=== PATIENT | male | born 1985 | race Hispanic/Latino ===

== ENCOUNTER 2016-11-12 21:39 | Inpatient (IN) | payer MEDICAID ==
[2016-11-12 22:07] VITALS: BMI 33.7
[2016-11-12] MEDS ORDERED: DiphenhydrAMINE 50 mg/ml Inj IM PRN (23:36)
[2016-11-12] MEDS ORDERED: Magnesium Hydroxide Susp 30 ml UD PO PRN (23:36)
[2016-11-12] MEDS ORDERED: Alum-Mag Hydrox-Simethicone Susp (30 mL) PO PRN (23:36)
[2016-11-13 08:01] LABS: T4 4.97 ug/dl (5.5-11.0)
[2016-11-13 08:15] LABS: THYROID STIMULATING HORMONE 2.16 mIU/ML (0.46-4.68)
[2016-11-13] MEDS: Divalproex 250 mg DR(BID formulation) PO SCH ×4 (09:03→21:51)
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
[2016-11-14] MEDS: Divalproex 250 mg DR(BID formulation) PO SCH ×4 (09:19→21:18)
--- NOTE | 2016-11-14 14:10 | PCM.PYCHPN ---
Psychiatric Progress Note - Psychiatric Progress Note Patient seen today, length of contact: in treatment team Patient Chief Complaint: i am feeling a little better Problems Identified/Issues Discussed: pt seen in team. he is reporting his paranoid thoughts are improving. he still feels anxious. he is asking for increase in his seroquel. he reports he uses minipress at night for nightmares . he is attempting to participate in groups. Medication Change: Yes (add minipress, increase seroquel) Medical Record Reviewed: Yes Mental Status Examination - Cognitive Function Orientation: Person, Place, Situation, Time Memory: Intact Attention: WNL Concentration: WNL Association: [facility] Fund of Knowledge: [facility] Decription of patient's judgement and insights: fair - Mood Mood: Depressed, Anxious - Affect Affect: Blunted - Speech Speech: Appropriate - Formal Thought Process Formal Thought Process: Paranoia (states thoughts are decreasing in intensity) - Suicidal Ideation Suicidal Ideation: No Plan: denies suicidal or homicidal thoughts - Homicidal Ideation Homicidal Ideation: No Goal/Treatment Plan - Goal/Treatment Plan Need for Continued Stay: Remain at risks for inpatient hospitalization, Discharge may exacerbated symptoms Progress Toward Problem(s) and Goals/Treatment Plan: schizoaffective diorder alcohol dependence ptsd by history will continue current treatment increase seroquel to restart minipress increase remeron to usual dose encourage participation in groups Estimated Date of D/C: 12/17/16
[2016-11-15] MEDS: Divalproex 250 mg DR(BID formulation) PO SCH ×4 (09:04→21:37)
--- NOTE | 2016-11-15 12:10 | PCM.PYCHPN ---
Psychiatric Progress Note - Psychiatric Progress Note Patient seen today, length of contact: pt seen and evaluated Patient Chief Complaint: pt still feels paranoid and irritible and still has racing thoughts.pt denies hallucinations Problems Identified/Issues Discussed: pt was admitted for psychotic agitation following alcohol abuse and noncompliance with meds. DSM 5 Symptoms Update: schizoaffective disorder ,bipolar type Medication Change: (will increase seroquel to 75 mg hs to stabilize) Medical Record Reviewed: Yes Mental Status Examination - Cognitive Function Orientation: Person, Place, Situation, Time Memory: Intact Attention: Poor Concentration: Poor Association: WNL Fund of Knowledge: WNL - Mood Mood: Depressed, Anxious - Affect Affect: Blunted - Speech Speech: Appropriate - Formal Thought Process Formal Thought Process: Paranoia (states thoughts are decreasing in intensity), Flight of ideas - Suicidal Ideation Suicidal Ideation: No - Homicidal Ideation Homicidal Ideation: No Goal/Treatment Plan - Goal/Treatment Plan Need for Continued Stay: Remain at risks for inpatient hospitalization, Discharge may exacerbated symptoms Progress Toward Problem(s) and Goals/Treatment Plan: will increase seroquel to 75 mg hs to stabilize the psychosis and engage pt in therapy and groups. Estimated Date of D/C: 12/17/16
[2016-11-16] MEDS: Divalproex 250 mg DR(BID formulation) PO SCH ×4 (09:11→21:31)
--- NOTE | 2016-11-16 13:41 | PCM.PYCHPN ---
Psychiatric Progress Note - Psychiatric Progress Note Patient seen today, length of contact: pt seen and evaluated Patient Chief Complaint: pt still feels paranoid and irritible and still has racing thoughts.pt denies hallucinations pt still c/o nightmares Problems Identified/Issues Discussed: pt was admitted for psychotic agitation following alcohol abuse and noncompliance with meds. DSM 5 Symptoms Update: schizoaffective disorder Medication Change: (will increase seroquel to 100 mg hs and increase minipress to 2mg hs) Medical Record Reviewed: Yes Mental Status Examination - Cognitive Function Orientation: Person, Place, Situation, Time Memory: Intact Attention: Poor Concentration: Poor Association: WNL Fund of Knowledge: WNL - Mood Mood: Depressed, Anxious - Affect Affect: Blunted - Speech Speech: Appropriate - Formal Thought Process Formal Thought Process: Paranoia (states thoughts are decreasing in intensity), Flight of ideas - Suicidal Ideation Suicidal Ideation: No - Homicidal Ideation Homicidal Ideation: No Goal/Treatment Plan - Goal/Treatment Plan Need for Continued Stay: Remain at risks for inpatient hospitalization, Discharge may exacerbated symptoms Progress Toward Problem(s) and Goals/Treatment Plan: will increase seroquel to 100 mg hs to stabilize the psychosis and engage pt in therapy and groups. Estimated Date of D/C: 12/17/16
[2016-11-17 08:51] VITALS: O2SAT 99
[2016-11-17] MEDS: Divalproex 250 mg DR(BID formulation) PO SCH ×2 (09:02→18:41)
[2016-11-17] MEDS ORDERED: Divalproex 500 mg DR(BID formulation) PO SCH (13:00)
--- NOTE | 2016-11-17 13:05 | PCM.PYCHPN ---
Psychiatric Progress Note - Psychiatric Progress Note Patient seen today, length of contact: discussed with treatment team Patient Chief Complaint: i am getting anxious Problems Identified/Issues Discussed: pt reports anxiety regarding his need to go to welfare after discharged - states he can't be around so many people. he is asking to have klonopin back up at home dose. he is asking for seroquel to be split to bid instead of 3 times. he is brighter and more visible in the milieu. Medication Change: (will increase seroquel to 100 mg hs and increase minipress to 2mg hs) Medical Record Reviewed: Yes Mental Status Examination - Cognitive Function Orientation: Person, Place, Situation, Time Memory: Intact Attention: WNL Concentration: WNL Association: WN Fund of Knowledge: [facility] Decription of patient's judgement and insights: fair - Mood Mood: Anxious - Affect Affect: Broad - Speech Speech: Appropriate - Formal Thought Process Formal Thought Process: No Impairment Psychotic Thoughts and Behaviors: no moare paranoid thoughts - Suicidal Ideation Suicidal Ideation: No - Homicidal Ideation Homicidal Ideation: No Goal/Treatment Plan - Goal/Treatment Plan Need for Continued Stay: Remain at risks for inpatient hospitalization, Discharge may exacerbated symptoms Progress Toward Problem(s) and Goals/Treatment Plan: schizoaffective diorder alcohol dependence ptsd by history will continue current treatment increase seroquel to 50mg and 150mg continue minipress encourage participation in groups Estimated Date of D/C: 12/17/16
[2016-11-17] MEDS: Divalproex 500 mg DR(BID formulation) PO SCH (18:44)
[2016-11-18] MEDS: Divalproex 250 mg DR(BID formulation) PO SCH ×2 (09:03→16:38)
[2016-11-18] MEDS: Divalproex 500 mg DR(BID formulation) PO SCH ×2 (09:03→16:33)
--- NOTE | 2016-11-18 11:25 | PCM.PYCHPN ---
Psychiatric Progress Note - Psychiatric Progress Note Patient seen today, length of contact: discussed with treatment team Patient Chief Complaint: i feel ok Problems Identified/Issues Discussed: pt reports improvement in anxiety. his thoughts are more clear. he is socializing with peers. no c/o panic. more discharge focused Medication Change: Yes (increase seroquel) Medical Record Reviewed: Yes Mental Status Examination - Cognitive Function Orientation: Person, Place, Situation, Time Memory: Intact Attention: WNL Concentration: WNL Association: WNL Fund of Knowledge: [facility] Decription of patient's judgement and insights: fair - Mood Mood: Anxious - Affect Affect: Broad - Speech Speech: Appropriate - Formal Thought Process Formal Thought Process: No Impairment Psychotic Thoughts and Behaviors: denies a/v hallucations. - Suicidal Ideation Suicidal Ideation: No - Homicidal Ideation Homicidal Ideation: No Goal/Treatment Plan - Goal/Treatment Plan Need for Continued Stay: Remain at risks for inpatient hospitalization, Discharge may exacerbated symptoms Progress Toward Problem(s) and Goals/Treatment Plan: schizoaffective diorder alcohol dependence ptsd by history will continue current treatment increase seroquel to 50mg and 200mg continue minipress encourage participation in groups Estimated Date of D/C: 12/17/16
[2016-11-19] MEDS: Divalproex 500 mg DR(BID formulation) PO SCH ×2 (09:13→17:59)
[2016-11-19] MEDS: Divalproex 250 mg DR(BID formulation) PO SCH ×2 (09:13→18:00)
--- NOTE | 2016-11-19 11:05 | PCM.PYCHPN ---
Psychiatric Progress Note - Psychiatric Progress Note Patient seen today, length of contact: discussed with treatment team Patient Chief Complaint: i feel better each day Problems Identified/Issues Discussed: pt reports continued improvement in anxiety and clarity of thoughts. he is socializing with peers. no c/o panic. remains discharge focused Medication Change: No ( ) Medical Record Reviewed: Yes Mental Status Examination - Cognitive Function Orientation: Person, Place, Situation, Time Memory: Intact Attention: WNL Concentration: WNL Association: WNL Fund of Knowledge: [place] Decription of patient's judgement and insights: fair - Mood Mood: Neutral - Affect Affect: Broad - Speech Speech: Appropriate - Formal Thought Process Formal Thought Process: No Impairment - Suicidal Ideation Suicidal Ideation: No - Homicidal Ideation Homicidal Ideation: No Goal/Treatment Plan - Goal/Treatment Plan Need for Continued Stay: Remain at risks for inpatient hospitalization, Discharge may exacerbated symptoms Progress Toward Problem(s) and Goals/Treatment Plan: schizoaffective diorder alcohol dependence ptsd by history will continue current treatment continue seroquel to 50mg and 200mg continue minipress encourage participation in groups Estimated Date of D/C: 12/17/16
[2016-11-19 17:00] VITALS: RESP 18
[2016-11-19] MEDS ORDERED: POLYETHYLENE GLYCOL 3350 17 GM/Dose PACKET PO PRN (23:58)
[2016-11-20] MEDS: Hydrocortisone 2.5% (Rectal) CREAM PR SCH ×3 (09:00→18:32)
[2016-11-20] MEDS: Divalproex 250 mg DR(BID formulation) PO SCH ×2 (09:06→16:48)
[2016-11-20] MEDS: Divalproex 500 mg DR(BID formulation) PO SCH ×2 (09:07→16:45)
--- NOTE | 2016-11-20 12:18 | PCM.PYCHPN ---
Psychiatric Progress Note - Psychiatric Progress Note Patient seen today, length of contact: discussed with treatment team Patient Chief Complaint: i feel ready to go Problems Identified/Issues Discussed: pt denies medication side effects. pt goal directed. sleep is improved. no longer c/o feeling paranoid. Medication Change: No ( ) Medical Record Reviewed: Yes Mental Status Examination - Cognitive Function Orientation: Person, Place, Situation, Time Memory: Intact Attention: WNL Concentration: WNL Association: WNL Fund of Knowledge: [facility] Decription of patient's judgement and insights: fair - Mood Mood: Neutral - Affect Affect: Broad - Speech Speech: Appropriate - Formal Thought Process Formal Thought Process: No Impairment - Suicidal Ideation Suicidal Ideation: No - Homicidal Ideation Homicidal Ideation: No Goal/Treatment Plan - Goal/Treatment Plan Need for Continued Stay: Remain at risks for inpatient hospitalization, Discharge may exacerbated symptoms Progress Toward Problem(s) and Goals/Treatment Plan: schizoaffective diorder alcohol dependence ptsd by history will continue current treatment encourage participation in groups discharge tomorrow Estimated Date of D/C: 12/17/16
[2016-11-21] MEDS: Hydrocortisone 2.5% (Rectal) CREAM PR SCH (08:36)
[2016-11-21] MEDS: Divalproex 500 mg DR(BID formulation) PO SCH (08:37)
[2016-11-21] MEDS: Divalproex 250 mg DR(BID formulation) PO SCH (08:37)
[2016-11-21 09:21] VITALS: BP 113/75; PULSE 69; TEMP 96.1
--- NOTE | 2016-11-21 13:38 | PCM.PYCHDC ---
Mental Status Examination - Mental Status Examination Orientation: Person, Place, Situation, Time Memory: Intact Mood: Neutral Affect: Constricted Speech: Appropriate Attention: WNL Concentration: WNL Association: WNL Fund of Knowledge: WNL Formal Thought Process: No Impairment Description of patient's judgement and insight: fair Psychotic Thoughts and Behaviors: denies a/v hallucations. Suicidal Ideation: No Current Homicidal Ideation?: No Plan: pt denies any suicidal or homicidal thoughts/plans or intent Discharge Summary - Discharge Note Reason for Hospitalization: transfered from [facility]- admitted for seizures, pt was expressing worsening psychosis Psychiatric History (includes Medical, Family, Personal Hx): history of alcohol dependence, seizures, schizoaffective disorder Laboratory Data: Abnormal Lab Results 11/21/16 07:06 Valproic Acid 41.1 L Consultations:: List each consultation separately and include: 1. Reason for request. 2. Findings. 3. Follow-up Consultations: seen by hospitalist Summary of Hospital Course include:: 1. Description of specific treatment plan utilized for patients during their course of treatmen. 2. Summarize the time- course for resolution of acute symptoms and/or regressed behaviors. 3. Describe issues identified and worked on during hospitalization. 4. Describe medication utilized. 5. Describe medical problems identified and treated. 6. Reassessment of suicide risk Summary of Hospital Course: pt transfered from [facility]. he had presented with seizures. he is an alcoholic and has schizoaffective disorder. pt states in the weeks preceeding his medical admission he was drinking alcohol daily to treat his psychotic symptoms. pt reports he was becoming increasingly paranoid and anxious. he states he was having thoughts to hurt others "before they hurt me." he apparently tried to make an appointment to address these symptoms, but did not have the change to go. he is feeling safe on the unit. he wants to go back on seroquel as he says that invega did not help with his symptoms. he has an unsteady gait and was seen by PT while in the medical hospital. hospital course pt was admitted to [facility] and oriented to the unit. pt seen by the hospitalist. he was seen by the treatment team. he was started on his previously effective medications and the dosages were titrated up to current levels. he was initially isolative and paranoid. his thoughts improved, his mood brightened and he did not have any complications of alcohol withdrawal. there were no acute medical issues. he was treated for constipation and hemorrhoids. the patient was referred to out patient treatment and the team was in touch with his professional supports. at the time of discharge the patient wad denying suicidal or homicidal thoughts, plans or intent. - Final Diagnosis (DSM 5) Condition upon Discharge: GOOD DSM 5: schizoaffective disorder alcohol dependence Disposition: HOME/ ROUTINE Follow-up Treatment Plan: take medications as prescribed do not use alcohol, tobacco or other illicit substances call 911 if any suicidal or homicidal thoughts attend aa meetings daily see your medical specialists as directed for follow up Prescriptions/Medication Reconciliation: Hydrocortisone 2.5% (Rectal) [Anusol-HC] 1 applic SD BID #1 tube Divalproex [Depakote DR (*BID*)] 250 mg PO BID #30 ect Divalproex [Depakote DR(*BID*)] 500 mg PO BID #30 tcp levETIRAcetam [Keppra] 1,500 mg PO BID #90 tab clonazePAM [Klonopin] 1 mg PO BID #30 tab lamoTRIgine [Lamictal] 25 mg PO BID #30 tab Prazosin HCl [Minipress] 2 mg PO HS #30 cap Polyethylene Glycol 3350 [Miralax] 17 gm PO DAILY PRN #15 packet PRN Reason: Constipation Ibuprofen [Motrin Tab] 600 mg PO Q6 PRN #15 tab PRN Reason: pain Mirtazapine [Remeron] 15 mg PO HS #15 tab Mirtazapine [Remeron] 30 mg PO HS #15 tab QUEtiapine [SEROquel] 200 mg PO HS #15 tab QUEtiapine [SEROquel] 50 mg PO DAILY #15 tab - Smoking Cessation Smoking Cessation Medication prescribed: No - Antipsychotic Medications Pt discharged on 2 or more routine antipsychotic medications: No
--- NOTE | 2016-12-09 12:15 | CON ---
DATE: 12/09/2016 CHIEF COMPLAINT: Seizures. HISTORY OF PRESENT ILLNESS: This is a 31-year-old male who experienced a seizure approximately 2 weeks prior to admission at [facility] on [address] in [place]. He was at the clinic for removal of 2 metal osvaldo at the left occipital region, which were placed at [facility] 2 weeks prior secondary to a seizure at home. The patient states that he had been taking Keppra irregularly. He said that the medications were not working, so he gradually stopped them. He states that he felt isolated and then started drinking alcohol with his new roommate. He also stated that he became paranoid and was having auditory hallucinations. He denied any chest pain, shortness of breath or palpitations. PAST MEDICAL HISTORY: The patient was at [facility] from 08/03/2016 through 08/18/2016, schizoaffective disorder, posttraumatic stress disorder, anxiety, seizures, obstructive sleep apnea, hypertension, insomnia, elevated liver function studies, thrombocytopenia, anxiety, depression. ALLERGIES: No known drug allergies. MEDICATIONS: Keppra 1500 mg twice daily, prazosin 2 mg at bedtime, trazodone 50 mg at bedtime, Invega 9 mg daily, gabapentin 400 mg 3 times a day, Lamictal 25 mg twice daily, mirtazapine 45 mg at bedtime. SOCIAL HISTORY: The patient denies smoking cigarettes. History of alcohol abuse. FAMILY HISTORY: Father due to cancer of the prostate in his 60s. He was a smoker. Mother at the age of 54 due to lung cancer with metastasis. She was also a smoker. The patient has 1 brother and 2 sisters who are healthy. REVIEW OF SYSTEMS: Unremarkable except as mentioned above. PHYSICAL EXAMINATION: GENERAL: A 31-year-old cooperative male. VITAL SIGNS: Blood pressure 126/82mmHg, pulse rate 72 beats per minute, afebrile, respiratory rate 16 respirations per minute. SKIN: Warm, dry. HEENT: A 1-1/2 inch scar healing well left occipital region. Normocephalic. Anicteric sclerae. Pupils equal, round, reactive to light and accommodation. NECK: Supple. No jugular venous distention. Full range of motion. HEART: Regular S1, S2, I/ systolic ejection murmur. LUNGS: Clear to auscultation. ABDOMEN: Positive bowel sounds, soft, nontender. EXTREMITIES: No cyanosis, clubbing or edema. ASSESSMENT: 1. Seizure disorder. 2. Alcohol dependence. 3. Schizoaffective disorder. 4. Posttraumatic stress disorder. 5. Laceration left occipital region. 6. Elevated transaminases. PLAN: The patient's laceration at the left occipital region is healing well. CBC, metabolic panel and urinalysis has been ordered for the a.m. The patient will have videotaped sleep study planned at [place] at discharge. He will follow up with Dr. Guillen for further management of seizure disorder. Treatment for alcohol dependence will also be arranged following discharge. Jennifer Acosta MD cc: [id number] TT: 12/09/2016 12:14:09 Confirmation # [id number] Dictation # [id number] isiah AGUILA
== END 2016-11-21 14:32 | disposition home or self-care (01) | DRG 430 ==
LOC: H.ER 21:39 → H.PSYCH 21:55
PROVIDERS: ADMIT Psychiatry & Neurology Psychiatry; ATTEND Psychiatry & Neurology Psychiatry
PROC: GZHZZZZ Group Psychotherapy (ICD-10-PCS; principal; 2016-11-12)
PROC: GZ58ZZZ Individual Psychotherapy, Cognitive-Behavioral (ICD-10-PCS; 2016-11-12)
DX: F25.0 Schizoaffective disorder, bipolar type (principal); R56.9 Unspecified convulsions; F10.20 Alcohol dependence, uncomplicated; F43.10 Post-traumatic stress disorder, unspecified; Z91.14 Patient's other noncompliance with medication regimen; Z91.013 Allergy to seafood

== ENCOUNTER 2017-01-31 22:33 | Inpatient (IN) | payer MEDICAID ==
[2017-01-31 22:33] VITALS: BMI 38.2
[2017-01-31 22:43] VITALS: O2SAT 96
--- NOTE | 2017-01-31 22:48 | ED PDOC ---
Psych Transfer Clearance - Clearance Statement Clearance Statement: Reviewed vital signs, lab results and transfer papers. Patient clinically stable for psychiatric admission.
[2017-02-01] MEDS ORDERED: DiphenhydrAMINE 50 mg/ml Inj IM PRN (00:28)
[2017-02-01] MEDS ORDERED: Magnesium Hydroxide Susp 30 ml UD PO PRN (00:28)
[2017-02-01] MEDS ORDERED: Alum-Mag Hydrox-Simethicone Susp (30 mL) PO PRN (00:28)
[2017-02-01 07:21] LABS: T4 6.94 ug/dl (5.5-11.0)
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
--- NOTE | 2017-02-02 12:13 | PCM.PYCHPN ---
Psychiatric Progress Note - Psychiatric Progress Note Patient seen today, length of contact: discussed with team Patient Chief Complaint: i think i need to go to a care home hospital Problems Identified/Issues Discussed: pt states that nobody has been able to help him. states they told him "stop wasting my time" when he [place] [facility] [place]. admits to drinking. continues to report voices. states he hasn't been "stable since my roomate " (which was some time ago) the patient states that that he is willing try try doxepin for sleep. states that seroquel is helpful. pt c/o left foot pain. pt is c/o feeling sweaty, shaky. Medical Problems: history of seizure disorder Medication Change: Yes Medical Record Reviewed: Yes Mental Status Examination - Cognitive Function Orientation: Person, Place, Situation, Time Memory: Intact Attention: WNL Concentration: WNL Association: [facility] Fund of Knowledge: [facility] Decription of patient's judgement and insights: fair - Mood Mood: Depressed, Anxious - Affect Affect: Constricted - Speech Speech: Appropriate - Formal Thought Process Formal Thought Process: Hallucinations - Suicidal Ideation Suicidal Ideation: Yes Plan: reports he thinks of hitting his head, but feels hopeful now that he is admitted to the hospital. - Homicidal Ideation Homicidal Ideation: No Goal/Treatment Plan - Goal/Treatment Plan Need for Continued Stay: Remain at risks for inpatient hospitalization, Discharge may exacerbated symptoms Progress Toward Problem(s) and Goals/Treatment Plan: alcohol dependence schizoaffective disorder continue current treatment will use ativan tid to start to detox from etoh restart the keppra and consult his pcp podiatry consult for foot pain start doxepin for sleep- discussed r/b/se with pt. have dc'd trazodone and will continue seroquel t/c starting neurontin tomorrow for mood/anxiety/withdrawal refer to [facility] for [facility] inpt Estimated Date of D/C: 02/09/17
[2017-02-02] MEDS: Multivitamin With Minerals Tab PO SCH (13:20)
[2017-02-02] MEDS: Pantoprazole 40 mg EC Tab PO SCH (15:06)
--- NOTE | 2017-02-02 17:08 | CP.PCM.CON ---
History of Present Illness - History of Present Illness History of Present Illness: PODIATRY CONSULT NOTE FOR DR. IBARRA: Mr. Gleason is a 31 yo male patient who was seen in psych unit this afternoon following request for podiatry consult. Pt seen resting in bed at time of visit , AAOx3. Pt says that he has been having left foot pain for the past 4 days. Denies any recent trauma or inciting event that he remembers to trigger the pain. Says that he does have a history of spraining both feet and ankles in the past. Says he feels pain to the outside of the left foot especially when he gets up to walk after long period of resting and says the pain actually feels better after he has walked. Denies any other pedal complaints at this time. PMH: seizures, anxiety, depression ALL: seafood, hyroxyzine Meds: see [facility] Surg. Hx: denies Soc. Hx: lives in [place], admits to binge drinking beers, denies smoking, denies drugs Review of Systems - Review of Systems Review of Systems: all systems reviewed and found to be negative except pertinent HPI findings above Past Patient History - Infectious Disease Hx of Infectious Diseases: None - Tetanus Immunizations Tetanus Immunization: Unknown - Past Medical History & Family History Past Medical History?: Yes - Past Social History Smoking Status: Never Smoked - CARDIAC Hx Hypertension: Yes - PULMONARY Hx Respiratory Disorders: Yes Hx Sleep Apnea: Yes - NEUROLOGICAL Hx Neurological Disorder: Yes Hx Seizures: Yes (Recent siezure a couple od days ago as per patient) - HEENT Hx HEENT Problems: No - RENAL Hx Chronic Kidney Disease: No - ENDOCRINE/METABOLIC Hx Endocrine Disorders: No - HEMATOLOGICAL/ONCOLOGICAL Hx Cancer: No - INTEGUMENTARY Hx Dermatological Problems: No - MUSCULOSKELETAL/RHEUMATOLOGICAL Hx Musculoskeletal Disorders: Yes Hx Back Pain: Yes Hx Falls: Yes (L shoulder pain from fall) Other/Comment: right shoulder eccymosis, unsteady gait - GASTROINTESTINAL Hx Gall Bladder Disease: Yes (thickening of the wall of gb) - GENITOURINARY/GYNECOLOGICAL Hx Sexually Transmitted Disorders: No - PSYCHIATRIC Hx Anxiety: Yes Hx Depression: Yes Hx Substance Use: No - ANESTHESIA Hx Anesthesia: No Hx Anesthesia Reactions: No Hx Malignant Hyperthermia: No Meds Allergies/Adverse Reactions: Allergies Allergy/AdvReac Type Severity Reaction Status Date / Time FISH Allergy RASH Verified 01/31/17 13:02 hydroxyzine [From Vistaril] Allergy RASH Verified 01/31/17 13:02 - Medications Medications: Current Medications Acetaminophen (Tylenol 325mg Tab) 650 mg PO Q4 PRN PRN Reason: Pain, moderate (4-7) Al Hydrox/Mg Hydrox/Simethicone (Maalox Plus 30 Ml) 30 ml PO Q4 PRN PRN Reason: Dyspepsia Last Admin: 02/01/17 08:55 Dose: 30 ml Diphenhydramine HCl (Benadryl) 50 mg IM Q6 PRN PRN Reason: Extrapyramidal S/S Unable PO Diphenhydramine HCl (Benadryl) 50 mg PO HS PRN PRN Reason: Sleep Doxepin HCl (Sinequan) 10 mg PO HS DEACON Folic Acid (Folic Acid) 1 mg PO DAILY [facility] Last Admin: 02/02/17 13:20 Dose: 1 mg Haloperidol (Haldol) 5 mg PO Q4 PRN PRN Reason: Agitation Haloperidol Lactate (Haldol) 5 mg IM Q4 PRN PRN Reason: Agitation, Unable to Take PO Levetiracetam (Keppra) 1,500 mg PO AMHS [facility] Last Admin: 02/02/17 13:20 Dose: 1,500 mg Lorazepam (Ativan) 2 mg IM Q4 PRN PRN Reason: Anxiety/Agitation,Unable PO Lorazepam (Ativan) 2 mg PO Q4 PRN PRN Reason: Anxiety/Agitation Lorazepam (Ativan) 1 mg PO TID [facility] Last Admin: 02/02/17 16:11 Dose: Not Given Magnesium Hydroxide (Milk Of Magnesia) 30 ml PO HS PRN PRN Reason: Constipation Multivitamins/Minerals (Therapeutic-M Tab) 1 tab PO DAILY [facility] Last Admin: 02/02/17 13:20 Dose: 1 tab Pantoprazole Sodium (Protonix Ec Tab) 40 mg PO ACB [facility] Last Admin: 02/02/17 15:06 Dose: 40 mg Prazosin HCl (Minipress) 1 mg PO HS [facility] Quetiapine Fumarate (Seroquel) 200 mg PO HS [facility] Last Admin: 02/01/17 21:23 Dose: 200 mg Thiamine HCl (Vitamin B1 Tab) 100 mg PO DAILY [facility] Last Admin: 02/02/17 13:20 Dose: 100 mg Physical Exam - Constitutional Appears: Non-toxic, No Acute Distress - Extremities Exam Extremities exam: Negative for: calf tenderness Additional comments: Left foot focused exams: VASC- DP/PT pulses 2/4, skin temp runs warm to cool, cap refill < 3 sec to digits x 10, slight non-pitting edema noted to dorsal-lateral aspect of forefoot NEURO- pedal sensation is grossly intact DERM- no IDM, no open lesions, no open wounds, no signs infection ORTHO- tenderness noted to dorsal lateral aspect of forefoot along dorsum of 4th and 5th metatarsal shafts, AJ dorsiflxion is limited (-5 degrees with knee extension and flexion), STJ rom is wnl ,pedal muscle strength is 5/5 in all directions - Neurological Exam Neurological exam: Alert, CN II-XII Intact, Oriented x3 - Psychiatric Exam Psychiatric exam: Normal Affect, Normal Mood Results - Vital Signs Recent Vital Signs: Last Vital Signs Temp 96.8 F L 02/02/17 10:41 Pulse 78 02/02/17 10:41 Resp 18 02/02/17 10:41 BP 167/98 H 02/02/17 10:41 Pulse Ox 96 01/31/17 22:37 - Labs Labs: Laboratory Results - last 24 hr 02/01/17 06:30 RPR Nonreactive Assessment & Plan - Assessment and Plan (Free Text) Assessment: 31 yo male pt with left foot pain likely 2/2 sprain/strain Plan: Pt S&E at bedside in psych Plan discussed with attending Dr. Ibarra in detail Left foot x-ray ordered Ibuprofen 600 mg po q6prn for pain/swelling discussed plan with pt podiatry will follow up x-ray results.
[2017-02-03 07:30] LABS: HEMOGLOBIN 14.8 g/dL (12.0-18.0); MEAN CELL VOLUME 89.9 fl (80.0-94.0); MEAN CORPUSCULAR HEMOGLOBIN 30.6 pg (27.0-31.0); MEAN CORPUSCULAR HGB CONC 34.1 g/dL (33.0-37.0); RBC 4.83 Mil/uL (4.40-5.90); RED CELL DISTRIBUTION WIDTH 12.5 % (11.5-14.5); WHITE BLOOD COUNT 6.6 K/uL (4.8-10.8)
[2017-02-03 07:49] LABS: ALB/GLOB RATIO 1.3 (1.0-2.1); ALT/SGPT 42 U/L (21-72); AST/SGOT 26 U/L (17-59); BLOOD UREA NITROGEN 25 mg/dl (9-20); CALCIUM 9.2 mg/dL (8.4-10.2); GFR AFRICAN-AMERICAN > 60; GFR NON-AFRICAN AMERICAN > 60
[2017-02-03 08:14] LABS: T3 1.11 nmol/L (1.49-2.60)
--- NOTE | 2017-02-03 11:18 | PCM.PYCHPN ---
Psychiatric Progress Note - Psychiatric Progress Note Patient seen today, length of contact: discussed with team Patient Chief Complaint: i feel really tired today Problems Identified/Issues Discussed: pt c/o feeling tired. reports good sleep. no withdrawal symptoms currently denies any hallucinations currently expressing that he doesn't feel he can live outside of a hospital at this time. dr tapia/podiatry following pt Medical Problems: history of seizure disorder Medication Change: Yes Medical Record Reviewed: Yes Mental Status Examination - Cognitive Function Orientation: Person, Place, Situation, Time Memory: Intact Attention: WNL Concentration: WNL Association: WNL Fund of Knowledge: [facility] Decription of patient's judgement and insights: fair - Mood Mood: Depressed, Anxious - Affect Affect: Constricted - Speech Speech: Appropriate - Formal Thought Process Formal Thought Process: Hallucinations - Suicidal Ideation Suicidal Ideation: Yes - Homicidal Ideation Homicidal Ideation: No Goal/Treatment Plan - Goal/Treatment Plan Need for Continued Stay: Remain at risks for inpatient hospitalization, Discharge may exacerbated symptoms Progress Toward Problem(s) and Goals/Treatment Plan: alcohol dependence schizoaffective disorder continue current treatment will use ativan tid to start to detox from etoh restart the keppra and consult his pcp podiatry consult for foot pain start doxepin for sleep- discussed r/b/se with pt. have dc'd trazodone and will continue seroquel t/c starting neurontin tomorrow for mood/anxiety/withdrawal refer to [facility] for [facility] inpt Estimated Date of D/C: 02/09/17
[2017-02-03] MEDS: Multivitamin With Minerals Tab PO SCH (13:02)
[2017-02-03] MEDS: Pantoprazole 40 mg EC Tab PO SCH (13:02)
[2017-02-03 14:00] LABS: URINE BILIRUBIN NEGATIVE (NEGATIVE); URINE BLOOD NEGATIVE (NEGATIVE); URINE CLARITY CLEAR (Clear); URINE COLOR YELLOW (YELLOW); URINE GLUCOSE (UA) NEG (Normal); URINE LEUKOCYTE ESTERASE TRACE Leu/uL (Negative); URINE NITRATE NEGATIVE (NEGATIVE); URINE PROTEIN NEGATIVE (NEGATIVE)
[2017-02-04] MEDS: Multivitamin With Minerals Tab PO SCH (08:45)
[2017-02-04] MEDS: Pantoprazole 40 mg EC Tab PO SCH (08:45)
--- NOTE | 2017-02-04 11:00 | RAD ---
PROCEDURE: Left Foot Radiographs. HISTORY: left foot pain COMPARISON: None available. FINDINGS: BONES: No acute displaced fracture. JOINTS: No dislocation. SOFT TISSUES: Soft tissue swelling. No evidence of radiopaque foreign body. OTHER FINDINGS: None. IMPRESSION: Soft tissue swelling. No acute displaced fracture or dislocation identified.If symptoms persist, or if there is continued clinical concern, x-ray follow-up in 7-10 days should be considered.
--- NOTE | 2017-02-04 13:55 | PCM.PYCHPN ---
Psychiatric Progress Note - Psychiatric Progress Note Patient seen today, length of contact: discussed with team Patient Chief Complaint: i am too tired to talk to you Problems Identified/Issues Discussed: pt c/o feeling tired. refused treatment team foot xray showed soft tissue swelling pt without withdrawal symptoms. pt is help rejecting and c/o every place letting him down. he has burned bridges with providers and resources Medical Problems: history of seizure disorder Medication Change: Yes (lower ativan) Medical Record Reviewed: Yes Mental Status Examination - Cognitive Function Orientation: Person, Place, Situation, Time Memory: Intact Attention: WNL Concentration: WNL Association: WN Fund of Knowledge: [facility] Decription of patient's judgement and insights: fair - Mood Mood: Depressed, Anxious - Affect Affect: Constricted - Speech Speech: Appropriate - Formal Thought Process Formal Thought Process: No Impairment - Suicidal Ideation Suicidal Ideation: No Plan: denies currently - Homicidal Ideation Homicidal Ideation: No Goal/Treatment Plan - Goal/Treatment Plan Need for Continued Stay: Remain at risks for inpatient hospitalization, Discharge may exacerbated symptoms Progress Toward Problem(s) and Goals/Treatment Plan: alcohol dependence schizoaffective disorder continue current treatment lower ativan medical/podiatry following refer [facility] Estimated Date of D/C: 02/09/17
[2017-02-04] MEDS: Bacitracin OINT 15GM TOP SCH (17:44)
--- NOTE | 2017-02-04 22:20 | CP.PCM.PCO ---
Assessment & Plan (1) Foot sprain Assessment and Plan: -Left foot x-ray reviewed: no evidence fracture or dislocation, + for soft tissue swelling. continue with ibuprofen prn and elevation of foot. -Podiatry to sign off, please re-consult as needed -Pt to follow up with Dr. Ibarra as outpatient should symptoms persist. -Thank you for this consult and allowing us to participate in the care of your patient. Status: Acute
[2017-02-05] MEDS: Multivitamin With Minerals Tab PO SCH (09:14)
[2017-02-05] MEDS: Pantoprazole 40 mg EC Tab PO SCH (09:14)
[2017-02-05] MEDS: Bacitracin OINT 15GM TOP SCH (09:14)
--- NOTE | 2017-02-05 11:01 | PCM.PYCHPN ---
Psychiatric Progress Note - Psychiatric Progress Note Patient seen today, length of contact: discussed with team Patient Chief Complaint: i didn't sleep that well Problems Identified/Issues Discussed: pt attending groups today. denies psychotic symptoms. remains focused on needing treatment for his alcohol dependence. he reports poor sleep last night. he has no withdrawal symptoms as ativan standing dose was discontinued. Medical Problems: history of seizure disorder Medication Change: Yes (start neurontin for sleep at ) Medical Record Reviewed: Yes Consults ordered or reviewed: appreciate podiatry assessment, they have signed of Mental Status Examination - Cognitive Function Orientation: Person, Place, Situation, Time Memory: Intact Attention: WNL Concentration: WNL Association: WNL Fund of Knowledge: [facility] Decription of patient's judgement and insights: fair - Mood Mood: Anxious - Affect Affect: Constricted - Speech Speech: Appropriate - Formal Thought Process Formal Thought Process: No Impairment Psychotic Thoughts and Behaviors: denies any a/v hallucinations - Suicidal Ideation Suicidal Ideation: No Plan: pt denies any suicidal or homicidal thoughts/plans or intent - Homicidal Ideation Homicidal Ideation: No Goal/Treatment Plan - Goal/Treatment Plan Need for Continued Stay: Remain at risks for inpatient hospitalization, Discharge may exacerbated symptoms Progress Toward Problem(s) and Goals/Treatment Plan: alcohol dependence schizoaffective disorder pt's psychiatric symptoms are stablizing and he is appropriate for inpt substance abuse treatment at this time.. continue to encourage participation in groups refer to [facility] for [facility] inpt Estimated Date of D/C: 02/09/17
--- NOTE | 2017-02-05 15:52 | CP.PCM.PCO ---
Assessment & Plan (1) Foot sprain Assessment and Plan: -Pt is podiatrically stable for d/c to rehab. weight bearing as tolerated to left foot. X-ray negative for fx or dislocation. Pt is not a fall risk. Follow up with Dr. Ibarra as outpatient as needed. Thank you. Status: Acute
--- NOTE | 2017-02-05 17:55 | CON ---
DATE: 02/05/2017 CHIEF COMPLAINT: Pain, redness and swelling, midline, anterior aspect of the head. HISTORY OF PRESENT ILLNESS: This is a 31-year-old white male who started consuming excessive amounts of alcohol after being offered by his new roommate approximately 2 weeks ago. The patient states th at he stopped his medications and decided to kill himself by banging his head against the wall. He n oted increasing auditory hallucinations for approximately 1 month. He complained of increasing redne ss, swelling and pain at the front of his head, at midline, just above the hairline. He denied any c hest pain, shortness of breath or palpitations. PAST MEDICAL HISTORY: Schizoaffective disorder, posttraumatic stress disorder, anxiety, seizures, ob structive sleep apnea, hypertension, insomnia, elevated liver function studies, thrombocytopenia, anx iety, depression. ALLERGIES: No known drug allergies. MEDICATIONS: Keppra 1500 mg twice daily, prazosin 2 mg at bedtime, trazodone 50 mg at bedtime, Inveg a 9 mg daily, gabapentin 400 mg 3 times a day, Lamictal 25 mg twice daily, mirtazapine 45 mg at bedti me. SOCIAL HISTORY: The patient denies smoking cigarettes. He has a long history of alcohol abuse. FAMILY HISTORY: Father due to cancer of the prostate in his 60s. He was a smoker. Moth er at the age of 54 due to lung cancer with metastasis. She was also a smoker. The tanja ent has 1 brother and 2 sisters who are healthy. REVIEW OF SYSTEMS: Fatigue, cough productive of clear sputum, difficulty sleeping. PHYSICAL EXAMINATION: GENERAL: This is a 31-year-old cooperative white male. VITAL SIGNS: Blood pressure 126/84, pulse rate 72 beats per minute, afebrile, respiratory rate 16 re spirations per minute. SKIN: Warm, dry. HEENT: Erythema at anterior aspect of the head just above the hairline with edema and central erythe ma approximately 3 cm in diameter with tenderness on palpation. HEENT: Normocephalic, anicteric sclerae. Pupils equal, round, reactive to light and accommodation. NECK: Supple. No jugular venous distention. No lymphadenopathy. Full range of motion. HEART: Regular S1, S2. A I/ systolic ejection murmur. LUNGS: Clear to auscultation. ABDOMEN: Positive bowel sounds, soft, nontender. EXTREMITIES: No cyanosis, clubbing or edema. ASSESSMENT: 1. Scalp infection, anterior aspect of the head at midline. 2. Alcohol dependence. 3. Seizure disorder. 4. Schizoaffective disorder. 5. Posttraumatic stress disorder. 6. Anxiety. 7. Depression. 8. Elevated transaminases. PLAN: CBC, metabolic panel and urinalysis have been ordered for the a.m. Keflex 500 mg 3 times a da y for 10 days has been ordered for the patient's scalp infection. Bactroban ointment applied 3 times a day for 10 days has also been ordered. The patient has been evaluated by his social work coordinator, . She states that he often misses appointments for followup. The patient does have a supportive car e nursing assistant but is noted to be noncompliant with followup. The patient states the desire to be hogan sferred to [facility] for rehabilitation concerning alcohol abuse and his schizoa ffective disorder associated with anxiety and depression. The patient's social work coordinator, is pres ently coordinating possible transfer to [facility]. Jennifer Acosta MD cc: [id number] TT: 02/05/2017 17:55:18 Confirmation # [id number] Dictation # [id number] ln
[2017-02-06] MEDS: Multivitamin With Minerals Tab PO SCH (09:10)
[2017-02-06] MEDS: Pantoprazole 40 mg EC Tab PO SCH (09:12)
[2017-02-06] MEDS: Bacitracin OINT 15GM TOP SCH ×2 (09:51→16:50)
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
[2017-02-06 23:05] LABS: LEVETIRACETAM 20.4 mcg/mL
[2017-02-07] MEDS: Multivitamin With Minerals Tab PO SCH (08:46)
[2017-02-07] MEDS: Pantoprazole 40 mg EC Tab PO SCH (08:47)
[2017-02-07] MEDS: Bacitracin OINT 15GM TOP SCH ×2 (08:51→18:30)
--- NOTE | 2017-02-07 11:08 | PCM.PYCHPN ---
Psychiatric Progress Note - Psychiatric Progress Note Patient seen today, length of contact: Patient evaluated, case discussed with staff, chart reviewed Patient Chief Complaint: "I've been having terrible nightmares" Problems Identified/Issues Discussed: Patient reports that he has been having vivid, disturbing nightmares. He also reports continued intermittent AH (telling him he is ugly and stupid) and paranoia. [employer] Manager discussed increasing the dosage of Seroquel with the patient and he was agreeable. He reports that his mood has been improving overall, but he continues to be very anxious. Medication Change: Yes (Increase Seroquel to 250 mg PO HS) Medical Record Reviewed: Yes Mental Status Examination - Cognitive Function Orientation: Person, Place, Situation, Time Memory: Intact Attention: WNL Concentration: WNL Association: WNL Fund of Knowledge: WNL - Mood Mood: Anxious - Affect Affect: Constricted - Speech Speech: Appropriate - Formal Thought Process Formal Thought Process: Hallucinations Psychotic Thoughts and Behaviors: +Intermittent AH and paranoia - Suicidal Ideation Suicidal Ideation: No - Homicidal Ideation Homicidal Ideation: No Goal/Treatment Plan - Goal/Treatment Plan Need for Continued Stay: Remain at risks for inpatient hospitalization, Discharge may exacerbated symptoms Progress Toward Problem(s) and Goals/Treatment Plan: Alcohol dependence, schizoaffective disorder. Patient continues to reports intermittent psychotic symptoms and anxiety, he would benefit from continued inpatient admission for stabilization and treatment. Continue Dozepine 10 mg PO HS, Increase Seroquel to 250 mg PO HS Continue to encourage participation in groups Refer to [facility] inpt Estimated Date of D/C: 02/10/17
[2017-02-08] MEDS: Bacitracin OINT 15GM TOP SCH ×2 (09:50→17:39)
[2017-02-08] MEDS: Pantoprazole 40 mg EC Tab PO SCH (09:50)
[2017-02-08] MEDS: Multivitamin With Minerals Tab PO SCH (09:51)
--- NOTE | 2017-02-08 13:51 | PCM.PYCHPN ---
Psychiatric Progress Note - Psychiatric Progress Note Patient seen today, length of contact: Patient evaluated, case discussed with staff, chart reviewed Patient Chief Complaint: "I heard voices last night" Problems Identified/Issues Discussed: Patient reports continued intermittent AH (telling him he is ugly, fat and stupid), last heard, last night. Fashion Director discussed increasing the dosage of Seroquel with the patient and he was agreeable. He reports that his mood has been improving overall, but he continues to be very anxious. He is very focused on housing and his placement following discharge. Medication Change: Yes (Increase Seroquel to 300 mg PO HS) Medical Record Reviewed: Yes Mental Status Examination - Cognitive Function Orientation: Person, Place, Situation, Time Memory: Intact Attention: WNL Concentration: WNL Association: WNL Fund of Knowledge: [facility] Decription of patient's judgement and insights: Fair I/J - Mood Mood: Anxious - Affect Affect: Constricted - Speech Speech: Appropriate - Formal Thought Process Formal Thought Process: No Impairment Psychotic Thoughts and Behaviors: +Intermittent AH, last heard last night - Suicidal Ideation Suicidal Ideation: No - Homicidal Ideation Homicidal Ideation: No Goal/Treatment Plan - Goal/Treatment Plan Need for Continued Stay: Remain at risks for inpatient hospitalization, Discharge may exacerbated symptoms Progress Toward Problem(s) and Goals/Treatment Plan: Alcohol dependence, schizoaffective disorder. Patient continues to reports intermittent psychotic symptoms and anxiety, he would benefit from continued inpatient admission for stabilization and treatment. Continue Dozepine 10 mg PO HS, Increase Seroquel to 300 mg PO HS Continue to encourage participation in groups Refer to [facility] for [facility] inpt Estimated Date of D/C: 02/10/17
[2017-02-09] MEDS: Multivitamin With Minerals Tab PO SCH (09:27)
[2017-02-09] MEDS: Pantoprazole 40 mg EC Tab PO SCH (09:29)
[2017-02-09] MEDS: Bacitracin OINT 15GM TOP SCH ×2 (09:29→17:30)
--- NOTE | 2017-02-09 12:14 | PCM.PYCHPN ---
Psychiatric Progress Note - Psychiatric Progress Note Patient seen today, length of contact: discussed with team Patient Chief Complaint: i am anxious Problems Identified/Issues Discussed: pt states he feels anxious. not sleeping well. states he still wants to go to inpt rehab. he isolates in room. no complaints of medication side effects. Medical Problems: history of seizure disorder Medication Change: Yes (increase neurontin, increase minipress) Medical Record Reviewed: Yes Mental Status Examination - Cognitive Function Orientation: Person, Place, Situation, Time Memory: Intact Attention: WNL Concentration: WNL Association: WNL Fund of Knowledge: WN Decription of patient's judgement and insights: fair - Mood Mood: Anxious - Affect Affect: Constricted - Speech Speech: Appropriate - Formal Thought Process Formal Thought Process: No Impairment - Suicidal Ideation Suicidal Ideation: No - Homicidal Ideation Homicidal Ideation: No Goal/Treatment Plan - Goal/Treatment Plan Need for Continued Stay: Remain at risks for inpatient hospitalization, Discharge may exacerbated symptoms Progress Toward Problem(s) and Goals/Treatment Plan: alcohol dependence schizoaffective disorder pt's anxiety is worsening will restart neurontin daily dose and increase minipress to usual dose continue with seroquel continue to encourage participation in groups refer to [facility] for [facility] inpt Estimated Date of D/C: 02/10/17
--- NOTE | 2017-02-10 10:47 | PCM.PYCHPN ---
Psychiatric Progress Note - Psychiatric Progress Note Patient seen today, length of contact: discussed with team Patient Chief Complaint: i am a f'ing insomniac...leave me alone Problems Identified/Issues Discussed: pt irritable today. staff at night report pt is c/o feeling paranoid. he refused medications this am after being upset that rn woke him up. he has not been accepted at [facility]. pt has been isolating in his room. Medical Problems: history of seizure disorder Medication Change: Yes (increase neurontin) Medical Record Reviewed: Yes Mental Status Examination - Cognitive Function Orientation: Person, Place, Situation, Time Memory: Intact Attention: WNL Concentration: WNL Association: [facility] Fund of Knowledge: [facility] Decription of patient's judgement and insights: fair - Mood Mood: Anxious, Other Additional comments: irritable - Affect Affect: Constricted - Speech Speech: Loud - Formal Thought Process Formal Thought Process: Paranoia - Suicidal Ideation Suicidal Ideation: No - Homicidal Ideation Homicidal Ideation: No Goal/Treatment Plan - Goal/Treatment Plan Need for Continued Stay: Remain at risks for inpatient hospitalization, Discharge may exacerbated symptoms Progress Toward Problem(s) and Goals/Treatment Plan: alcohol dependence schizoaffective disorder pt's anxiety is worsening will increase neurontin daily dose continue to encourage participation in groups pt will need outpt substance abuse treatment Estimated Date of D/C: 02/10/17
[2017-02-10] MEDS: Pantoprazole 40 mg EC Tab PO SCH (12:35)
[2017-02-10] MEDS: Multivitamin With Minerals Tab PO SCH (12:36)
[2017-02-10] MEDS: Bacitracin OINT 15GM TOP SCH ×2 (12:43→17:37)
--- NOTE | 2017-02-10 19:26 | CP.PCM.PN ---
Subjective - Date & Time of Evaluation Date of Evaluation: 02/01/17 Time of Evaluation: 11:00 - Subjective Subjective: Patient has no complaint of pain today at midline anterior aspect of head. Patient states that he would prefer transfer to [facility] Vital Signs Stable HEENT- No erythema or tenderness at anterior aspect of head Lungs- Clear to Auscultation Heart- Regular S1, S2, 1/6 ADORE Abd.- + bowel sounds, soft, nontender Ext.- No edema 1. Scalp infection- resolved 2. Seizure Disorder 3. ETOH Dependence 4. Schizoaffective Disorder 5. Posttraumatic Stress Disorder Patient is medically cleared for discharge. He can follow up at my office 1 week following discharge. Objective - Vital Signs/Intake and Output Vital Signs (last 24 hours): Temp Pulse Resp BP Pulse Ox 98.1 F 65 20 141/72 96 02/10/17 17:00 02/10/17 17:00 02/10/17 17:00 02/10/17 17:00 01/31/17 22:37 - Medications Medications: Current Medications Acetaminophen (Tylenol 325mg Tab) 650 mg PO Q4 PRN PRN Reason: Pain, moderate (4-7) Last Admin: 02/02/17 21:22 Dose: 650 mg Al Hydrox/Mg Hydrox/Simethicone (Maalox Plus 30 Ml) 30 ml PO Q4 PRN PRN Reason: Dyspepsia Last Admin: 02/01/17 08:55 Dose: 30 ml Amlodipine Besylate (Norvasc) 5 mg PO DAILY [facility] Last Admin: 02/10/17 12:36 Dose: 5 mg Bacitracin (Bacitracin Oint) 1 applic TOP BID [facility] Last Admin: 02/10/17 17:37 Dose: Not Given Diphenhydramine HCl (Benadryl) 50 mg PO HS PRN PRN Reason: Sleep Last Admin: 02/06/17 22:37 Dose: 50 mg Doxepin HCl (Sinequan) 10 mg PO HS [facility] Last Admin: 02/09/17 21:11 Dose: 10 mg Folic Acid (Folic Acid) 1 mg PO DAILY [facility] Last Admin: 02/10/17 12:36 Dose: 1 mg Gabapentin (Neurontin) 400 mg PO HS [facility] Last Admin: 02/09/17 21:10 Dose: 400 mg Gabapentin (Neurontin) 600 mg PO TID [facility] Last Admin: 02/10/17 17:36 Dose: 600 mg Haloperidol (Haldol) 5 mg PO Q4 PRN PRN Reason: Agitation Last Admin: 02/09/17 22:03 Dose: 5 mg Haloperidol Lactate (Haldol) 5 mg IM Q4 PRN PRN Reason: Agitation, Unable to Take PO Ibuprofen (Motrin Tab) 600 mg PO Q6 PRN PRN Reason: Pain, Mild (1-3) Last Admin: 02/07/17 08:47 Dose: 600 mg Levetiracetam (Keppra) 1,500 mg PO AMHS [facility] Last Admin: 02/10/17 12:38 Dose: 1,500 mg Lorazepam (Ativan) 2 mg IM Q4 PRN PRN Reason: Anxiety/Agitation,Unable PO Magnesium Hydroxide (Milk Of Magnesia) 30 ml PO HS PRN PRN Reason: Constipation Multivitamins/Minerals (Therapeutic-M Tab) 1 tab PO DAILY [facility] Last Admin: 02/10/17 12:36 Dose: 1 tab Pantoprazole Sodium (Protonix Ec Tab) 40 mg PO ACB [facility] Last Admin: 02/10/17 12:35 Dose: 40 mg Prazosin HCl (Minipress) 2 mg PO HS [facility] Last Admin: 02/09/17 21:10 Dose: 2 mg Quetiapine Fumarate (Seroquel) 400 mg PO HS [facility] Thiamine HCl (Vitamin B1 Tab) 100 mg PO DAILY [facility] Last Admin: 02/10/17 12:36 Dose: 100 mg - Labs Labs: 02/03/17 07:16 02/03/17 07:16
[2017-02-11] MEDS: Pantoprazole 40 mg EC Tab PO SCH (09:48)
[2017-02-11] MEDS: Multivitamin With Minerals Tab PO SCH (09:48)
[2017-02-11] MEDS: Bacitracin OINT 15GM TOP SCH ×2 (09:51→17:51)
--- NOTE | 2017-02-11 17:10 | PCM.PYCHPN ---
Psychiatric Progress Note - Psychiatric Progress Note Patient seen today, length of contact: discussed with team Patient Chief Complaint: seroquel was recently increased to 400mg po last night, feels a little bit calmer. yesterday reports was more irritable "slid a chair". reports is thinking about future for what or where he would stay and or attend treatment. Problems Identified/Issues Discussed: alteration in thought process alteration in coping substance use Medical Problems: per chart Diagnostic Results: per psychiatry per medicine per nursing per social work Medication Change: No Medical Record Reviewed: Yes Mental Status Examination - Cognitive Function Orientation: Person, Place, Situation, Time Memory: Intact Attention: WNL Concentration: WNL Association: WNL Fund of Knowledge: WN Decription of patient's judgement and insights: impaired - Mood Mood: Anxious, Other - Affect Affect: Constricted - Speech Speech: Loud - Formal Thought Process Formal Thought Process: Paranoia - Suicidal Ideation Suicidal Ideation: No - Homicidal Ideation Homicidal Ideation: No Goal/Treatment Plan - Goal/Treatment Plan Need for Continued Stay: Remain at risks for inpatient hospitalization, Discharge may exacerbated symptoms Progress Toward Problem(s) and Goals/Treatment Plan: inpt milieu adjust meds per status vital signs clinical observation per protocol and per status get up slowly falls precautions discharge planning in progress ? dual diagnosis Estimated Date of D/C: 02/10/17 - Smoking Cessation Smoking Cessation Initiated: No Reason for not providing: deferred
[2017-02-12] MEDS: Multivitamin With Minerals Tab PO SCH (08:19)
[2017-02-12] MEDS: Pantoprazole 40 mg EC Tab PO SCH (08:32)
[2017-02-12] MEDS: Bacitracin OINT 15GM TOP SCH ×2 (08:32→17:32)
--- NOTE | 2017-02-12 09:53 | PCM.PYCHPN ---
Psychiatric Progress Note - Psychiatric Progress Note Patient seen today, length of contact: discussed with team Patient Chief Complaint: i am feeling a little better Problems Identified/Issues Discussed: pt less irritable. states he hears voices at night when there is less to distract him. feels 500mg seroquel was helpful in past. no c/o medication side effects. Medical Problems: history of seizure disorder Medication Change: Yes (increase seroquel, neurontin) Medical Record Reviewed: Yes Mental Status Examination - Cognitive Function Orientation: Person, Place, Situation, Time Memory: Intact Attention: WNL Concentration: WNL Association: [facility] Fund of Knowledge: [facility] Decription of patient's judgement and insights: fair - Mood Mood: Anxious, Other - Affect Affect: Constricted - Speech Speech: Loud - Formal Thought Process Formal Thought Process: Paranoia Psychotic Thoughts and Behaviors: denies a/v hallucinations - Suicidal Ideation Suicidal Ideation: No - Homicidal Ideation Homicidal Ideation: No Goal/Treatment Plan - Goal/Treatment Plan Need for Continued Stay: Remain at risks for inpatient hospitalization, Discharge may exacerbated symptoms Progress Toward Problem(s) and Goals/Treatment Plan: alcohol dependence schizoaffective disorder will increase neurontin hs dose increase seroquel to 500mg hs continue to encourage participation in groups pt will need outpt substance abuse treatment Estimated Date of D/C: 02/10/17
[2017-02-12 16:34] VITALS: RESP 18
[2017-02-13 08:43] VITALS: BP 133/77; PULSE 67; TEMP 96.4
[2017-02-13] MEDS: Pantoprazole 40 mg EC Tab PO SCH (09:23)
[2017-02-13] MEDS: Multivitamin With Minerals Tab PO SCH (09:24)
[2017-02-13] MEDS: Bacitracin OINT 15GM TOP SCH (09:29)
--- NOTE | 2017-02-13 11:37 | PCM.PYCHDC ---
Mental Status Examination - Mental Status Examination Orientation: Person, Place, Situation, Time Memory: Intact Mood: Anxious (in anticipation of discharge) Affect: Constricted Speech: Appropriate Attention: WNL Concentration: WNL Association: WNL Fund of Knowledge: WNL Formal Thought Process: No Impairment Description of patient's judgement and insight: fair Psychotic Thoughts and Behaviors: denies a/v hallucinations currently Suicidal Ideation: No Current Homicidal Ideation?: No Plan: denies suicidal or homicidal thoughts Discharge Summary - Discharge Note Reason for Hospitalization: depression, hallucinations, alcohol consumption and homelessness Consultations:: List each consultation separately and include: 1. Reason for request. 2. Findings. 3. Follow-up Consultations: appreciate podiatry assessment Summary of Hospital Course include:: 1. Description of specific treatment plan utilized for patients during their course of treatmen. 2. Summarize the time- course for resolution of acute symptoms and/or regressed behaviors. 3. Describe issues identified and worked on during hospitalization. 4. Describe medication utilized. 5. Describe medical problems identified and treated. 6. Reassessment of suicide risk Summary of Hospital Course: pt was admitted to [facility] and oriented to the unit. pt was placed on routine safety protocols. pt was seen by the hospitalist. pt was restarted on his keppra. he was restarted on his psychiatric medications- seroquel, neurontin and minipress and the dosages titrated to current levels. doxepin was added for sleep with good effect. he was tapered off ativan and did not have any etoh withdrawal complications. he was referred to in rehab programs but not accepted as programs felt he was "too psychiatric" he was encouraged to attend AA meetings as he had successfully done in the past. he was referred to [facility] and was agreeing to follow up there. at the time of discharge he was denying suicidal or homicidal thoughts. - Final Diagnosis (DSM 5) Condition upon Discharge: STABLE DSM 5: schizoaffective disorder alcohol dependence Disposition: HOME/ ROUTINE Follow-up Treatment Plan: follow up with aftercare as directed take medications as prescribed do not use alcohol, tobacco or other illicit substances call 911 if any suicidal or homicidal thoughts/plans or intent attend AA meetings daily follow up with your neurologist per your routine Prescriptions/Medication Reconciliation: amLODIPine [Norvasc] 5 mg PO DAILY #15 tab Doxepin [Sinequan] 10 mg PO HS #15 cap Folic Acid 1 mg PO DAILY #15 tab Gabapentin [Neurontin] 600 mg PO TID #45 tab Gabapentin [Neurontin] 800 mg PO HS #15 tablet levETIRAcetam [Keppra] 1,500 mg PO AMHS #30 tab Multivitamin Therapeutic Tab [Thera Tab] 1 tab PO DAILY #15 tab Pantoprazole [Protonix EC Tab] 40 mg PO ACB #15 ect Prazosin HCl [Minipress] 2 mg PO HS #30 cap QUEtiapine [SEROquel] 100 mg PO HS #15 tab Quetiapine Fumarate [Seroquel] 400 mg PO HS #15 tablet Thiamine [Vitamin B1 Tab] 100 mg PO DAILY #15 tab - Smoking Cessation Smoking Cessation Medication prescribed: No Reason for not providing: declines - Antipsychotic Medications Pt discharged on 2 or more routine antipsychotic medications: No
== END 2017-02-13 14:42 | disposition home or self-care (01) | DRG 430 ==
LOC: H.ER 22:33 → H.PSYCH 22:43 → UNDOADMIN 22:46 → H.PSYCH 22:46 → H.STEP 02-02 02:03 → H.PSYCH 02-02 02:09
PROVIDERS: ADMIT Psychiatry & Neurology Psychiatry; ATTEND Psychiatry & Neurology Psychiatry
PROC: GZHZZZZ Group Psychotherapy (ICD-10-PCS; principal; 2017-01-31)
PROC: GZ58ZZZ Individual Psychotherapy, Cognitive-Behavioral (ICD-10-PCS; 2017-01-31)
DX: F25.0 Schizoaffective disorder, bipolar type (principal); F10.24 Alcohol dependence with alcohol-induced mood disorder; G40.909 Epilepsy, unspecified, not intractable, without status epilepticus; I10 Essential (primary) hypertension; F43.10 Post-traumatic stress disorder, unspecified; G47.00 Insomnia, unspecified; G47.33 Obstructive sleep apnea (adult) (pediatric); S93.692A Other sprain of left foot, initial encounter; F41.9 Anxiety disorder, unspecified; L08.9 Local infection of the skin and subcutaneous tissue, unspecified; Z91.19 Patient's noncompliance with other medical treatment and regimen; Z59.0 Homelessness; Z62.810 Personal history of physical and sexual abuse in childhood; R74.0 Nonspecific elevation of levels of transaminase and lactic acid dehydrogenase [LDH]; Z91.013 Allergy to seafood; Z88.8 Allergy status to other drugs, medicaments and biological substances; X58.XXXA Exposure to other specified factors, initial encounter; Y93.9 Activity, unspecified; Y92.9 Unspecified place or not applicable

== ENCOUNTER 2017-04-02 10:52 | Emergency (ER) | payer MEDICAID ==
[2017-04-02 11:04] VITALS: BP 132/63; PULSE 85; TEMP 98; O2SAT 99; BMI 37.5
[2017-04-02 11:15] VITALS: RESP 18
[2017-04-02] MEDS ORDERED: Permethrin 5% CREAM TOP STA (11:20)
--- NOTE | 2017-04-02 11:46 | ED PDOC ---
HPI: General Adult Time Seen by Provider: 04/02/17 11:44 Chief Complaint (Nursing): Abnormal Skin Integrity Chief Complaint (Provider): RASH History Per: Patient (32 Y/O MALE UNDOMICILED HERE WITH GENERALIZED RASH X 2 DAYS ASSOCIATED WITH PRUIRITIS. STATES HE HAS HAD GENERALIZED ITCHING WITH WORSENING BY HANDS.) Past Medical History Reviewed: Historical Data, Nursing Documentation, Vital Signs Vital Signs: Last Vital Signs Temp 98 F 04/02/17 11:13 Pulse 85 04/02/17 11:13 Resp 18 04/02/17 11:13 BP 132/63 04/02/17 11:13 Pulse Ox 99 04/02/17 11:46 - Medical History PMH: Anxiety, Bipolar Disorder, Depression, Gall Bladder Disease (thickening of the wall of gb), HTN, Hypercholesterolemia, Hyperlipidemia, Paranoia, Post Traumatic Stress Disorder, Schizophrenia (schizoaffective), Seizures (Recent siezure a couple od days ago as per patient), Sleep Apnea Denies: Diabetes, Hepatitis, HIV, Chronic Kidney Disease, Sexually Transmitted Disease - Surgical History Surgical History: - Immunization History Hx Tetanus Toxoid Vaccination: Yes Hx Influenza Vaccination: Yes Hx Pneumococcal Vaccination: No - Home Medications Home Medications: Ambulatory Orders Medication Instructions Recorded Doxepin [Sinequan] 10 mg PO HS #15 cap 02/13/17 Folic Acid 1 mg PO DAILY #15 tab 02/13/17 Gabapentin [Neurontin] 600 mg PO TID #45 tab 02/13/17 Gabapentin [Neurontin] 800 mg PO HS #15 tablet 02/13/17 Multivitamin Therapeutic Tab 1 tab PO DAILY #15 tab 02/13/17 [Thera Tab] Prazosin HCl [Minipress] 2 mg PO HS #30 cap 02/13/17 Thiamine [Vitamin B1 Tab] 100 mg PO DAILY #15 tab 02/13/17 levETIRAcetam [Keppra] 1,500 mg PO AMHS #30 tab 02/13/17 Quetiapine Fumarate [Seroquel] 500 mg PO HS 02/23/17 Escitalopram [Lexapro] 10 mg PO DAILY #14 tab 02/27/17 Folic Acid 1 mg PO DAILY #14 tab 02/27/17 Gabapentin [Neurontin] 600 mg PO TID #60 tab 02/27/17 Gabapentin [Neurontin] 800 mg PO HS #14 cap 02/27/17 Multivitamin Therapeutic Tab 1 tab PO 0800 #14 tab 02/27/17 [Thera Tab] Prazosin HCl [Minipress] 2 mg PO HS #30 cap 02/27/17 QUEtiapine [Seroquel] 500 mg PO HS #14 tab 02/27/17 Thiamine [Vitamin B1 Tab] 100 mg PO DAILY #14 tab 02/27/17 levETIRAcetam [Keppra] 1,500 mg PO AMHS #30 tab 02/27/17 Permethrin 5% [Permethrin 5% Cream] 60 gm TP ONCE #1 tube 04/02/17 - Allergies Allergies/Adverse Reactions: Allergies Allergy/AdvReac Type Severity Reaction Status Date / Time FISH Allergy RASH Verified 04/02/17 11:12 hydroxyzine [From Vistaril] Allergy RASH Verified 02/23/17 23:44 Review of Systems ROS Statement: Except As Marked, All Systems Reviewed And Found Negative Physical Exam - Reviewed Nursing Documentation Reviewed: Yes Vital Signs Reviewed: Yes - Physical Exam Appears: Positive for: Well, Non-toxic, No Acute Distress Head Exam: Positive for: ATRAUMATIC, NORMAL INSPECTION, NORMOCEPHALIC Skin: Positive for: Normal Color, Warm, Rash (GENERALIZED RASH NOTED SMALL HYPERPIGMENTED,RAISED REGIONS UPPER AND LOWER EXTREMITIES. NO URTICARIA NOTED. SMALLER LESIONS NOTED INTERWEB SPACES.) Eye Exam: Positive for: EOMI, Normal appearance, PERRL ENT: Positive for: Normal ENT Inspection Neck: Positive for: Normal, Painless ROM Cardiovascular/Chest: Positive for: Regular Rate, Rhythm Respiratory: Positive for: CNT, Normal Breath Sounds Gastrointestinal/Abdominal: Positive for: Normal Exam, Bowel Sounds, Soft Back: Positive for: Normal Inspection Extremity: Positive for: Normal ROM Neurologic/Psych: Positive for: Alert, Oriented - ECG O2 Sat by Pulse Oximetry: 99 Disposition - Clinical Impression Clinical Impression: Rash and nonspecific skin eruption - Patient ED Disposition Is Patient to be Admitted: No - Disposition Disposition: Routine/Home Disposition Time: 13:05 Condition: FAIR Prescriptions: Permethrin 5% [Permethrin 5% Cream] 60 gm TP ONCE #1 tube Instructions: Scabies (ED) Forms: TBS ([place])
== END 2017-04-02 13:11 | disposition home or self-care (01) ==
LOC: H.ER 10:52
DX: R21 Rash and other nonspecific skin eruption (principal)

== ENCOUNTER 2017-04-07 13:44 | Observation (INO) | payer MEDICAID ==
[2017-04-07 13:44] VITALS: BMI 37.5
[2017-04-07 13:54] VITALS: BP 133/85; PULSE 95; RESP 20; TEMP 98.7; O2SAT 99
[2017-04-07 14:59] LABS: BASO # 0.1 K/uL (0.0-0.2); BASO % 2.3 % (0.0-2.0); EOS # 0.2 K/uL (0.0-0.7); EOS % 4.4 % (0.0-4.0); HEMATOCRIT 42.3 % (35.0-51.0); LYMPH # 1.4 K/uL (1.0-4.3); LYMPH % 27.7 % (20.0-40.0); MEAN CELL VOLUME 89.9 fl (80.0-94.0); MEAN CORPUSCULAR HEMOGLOBIN 30.8 pg (27.0-31.0); MEAN CORPUSCULAR HGB CONC 34.3 g/dL (33.0-37.0); MEAN PLATELET VOLUME 7.3 fl (7.2-11.7); MONO # 0.7 K/uL (0.0-0.8); NEUT # 2.7 K/uL (1.8-7.0); NEUT % 52.6 % (50.0-75.0); NRBC % 0.1 % (0.0-0.0); RED CELL DISTRIBUTION WIDTH 14.5 % (11.5-14.5); WHITE BLOOD COUNT 5.1 K/uL (4.8-10.8)
[2017-04-07 15:09] LABS: ALB/GLOB RATIO 1.2 (1.0-2.1); ALKALINE PHOSPHATASE 70 U/L (38-126); ALT/SGPT 114 U/L (21-72); AST/SGOT 60 U/L (17-59); BILIRUBIN,TOTAL 0.3 mg/dl (0.2-1.3); BLOOD UREA NITROGEN 12 mg/dl (9-20); CALCIUM 8.6 mg/dL (8.4-10.2); CARBON DIOXIDE 25 mmol/L (22-30); CHLORIDE 107 mmol/L (98-107); GFR AFRICAN-AMERICAN > 60; GLUCOSE,RANDOM 86 mg/dL (75-110); SODIUM 146 mmol/l (132-148); TOTAL PROTEIN 7.3 G/DL (6.3-8.2)
--- NOTE | 2017-04-07 15:12 | CT ---
PROCEDURE: CT HEAD WITHOUT CONTRAST. HISTORY: Found on ground COMPARISON: 05/24/2016. TECHNIQUE: Axial computed tomography images were obtained through the head/brain without intravenous contrast. Radiation dose: Total exam DLP = 854.97 mGy-cm. This CT exam was performed using one or more of the following dose reduction techniques: Automated exposure control, adjustment of the mA and/or kV according to patient size, and/or use of iterative reconstruction technique. FINDINGS: HEMORRHAGE: No intracranial hemorrhage. BRAIN: Singleton-white matter differentiation is preserved. There is no mass, mass effect or abnormal extra-axial fluid collection. VENTRICLES: The ventricles are normal in size, shape and configuration. CALVARIUM: There is no calvarial fracture or extracranial soft tissue swelling. PARANASAL SINUSES: Predominantly clear. MASTOID AIR CELLS: Predominantly clear. OTHER FINDINGS: None. IMPRESSION: No acute intracranial abnormality.
[2017-04-07 15:31] LABS: ALCOHOL SERUM 337 mg/dl (0-10)
--- NOTE | 2017-04-07 15:45 | ED PDOC ---
HPI: Seizure Time Seen by Provider: 04/07/17 14:18 Chief Complaint (Nursing): Seizure Chief Complaint (Provider): Seizure History Per: Patient History/Exam Limitations: no limitations Recent Seizure Activity Began: Just Before Arrival Length Of Seizures (Duration): Unknown Associated Symptoms: denies: Bit Tongue, Incontinence Of Urine Additional Complaint(s): Anatoliy Gleason is a 32 y/o male who was brought to the ED via EMS after he was found on [facility] bathroom floor. States he thinks he had a seizure. Patient admits to alcohol use yesterday. States he had a seizure 3 weeks ago and is compliant with his Keppra regimen. Denies all other medical complaints, suicidal and homicidal ideations. No incontinence or tongue biting associated with seizure. PMD: Unknown Past Medical History Reviewed: Historical Data, Nursing Documentation, Vital Signs Vital Signs: Last Vital Signs Temp 98.7 F 04/07/17 13:51 Pulse 95 H 04/07/17 13:51 Resp 20 04/07/17 13:51 BP 133/85 04/07/17 13:51 Pulse Ox 99 04/09/17 10:43 - Medical History PMH: Anxiety, Bipolar Disorder, Depression, Gall Bladder Disease (thickening of the wall of gb), HTN, Hypercholesterolemia, Hyperlipidemia, Paranoia, Post Traumatic Stress Disorder, Schizophrenia (schizoaffective), Seizures (t), Sleep Apnea Denies: Diabetes, Hepatitis, HIV, Chronic Kidney Disease, Sexually Transmitted Disease - Surgical History Surgical History: - Family History Family History: States: Unknown Family Hx - Social History Current smoker - smoking cessation education provided: No Alcohol: Occasional Drugs: Denies - Immunization History Hx Tetanus Toxoid Vaccination: Yes Hx Influenza Vaccination: Yes Hx Pneumococcal Vaccination: No - Home Medications Home Medications: Ambulatory Orders Medication Instructions Recorded Doxepin [Sinequan] 10 mg PO HS #15 cap 02/13/17 Prazosin HCl [Minipress] 2 mg PO HS #30 cap 02/13/17 Quetiapine Fumarate [Seroquel] 500 mg PO HS 02/23/17 Gabapentin [Neurontin] 800 mg PO HS #14 cap 02/27/17 levETIRAcetam [Keppra] 1,500 mg PO AMHS #30 tab 02/27/17 Gabapentin [Neurontin] 600 mg PO BID 04/09/17 Levetiracetam [Keppra] 2 tab PO BID #10 tablet 04/10/17 Omeprazole 20 mg PO DAILY #30 capsule. 04/10/17 - Allergies Allergies/Adverse Reactions: Allergies Allergy/AdvReac Type Severity Reaction Status Date / Time FISH Allergy RASH Verified 04/10/17 07:08 hydroxyzine [From Vistaril] Allergy Verified 04/10/17 07:09 Review of Systems ROS Statement: Except As Marked, All Systems Reviewed And Found Negative Genitourinary Male: Negative for: Incontinence Neurological: Positive for: Seizures. Negative for: Other (tongue biting) Psych: Negative for: Suicidal ideation (or homicidal) Physical Exam - Reviewed Nursing Documentation Reviewed: Yes Vital Signs Reviewed: Yes - Physical Exam Appears: Positive for: Non-toxic, No Acute Distress Head Exam: Positive for: ATRAUMATIC, NORMAL INSPECTION, NORMOCEPHALIC Skin: Positive for: Normal Color, Warm, Dry Eye Exam: Positive for: EOMI, Normal appearance, PERRL Neck: Positive for: Normal, Painless ROM, Supple Cardiovascular/Chest: Positive for: Regular Rate, Rhythm. Negative for: Murmur Respiratory: Positive for: Normal Breath Sounds. Negative for: Respiratory Distress Gastrointestinal/Abdominal: Positive for: Normal Exam, Soft. Negative for: Tenderness Back: Positive for: Normal Inspection. Negative for: Vertebral Tenderness Extremity: Positive for: Normal ROM. Negative for: Pedal Edema, Deformity Neurologic/Psych: Positive for: Alert, Oriented - Laboratory Results Result Diagrams: 04/07/17 14:47 04/07/17 14:47 - ECG O2 Sat by Pulse Oximetry: 99 (RA) Pulse Ox Interpretation: Normal Medical Decision Making Medical Decision Making: Time: 14:19 Initial Impression: Seizure Initial Plan: --CMP --Alcohol serum --Urine drug screen --CBC --Accucheck --Levetiracetam level --Urinalysis --Pending CT Head w/o contrast Time: 15:10 CT Head w/o contrast: FINDINGS: HEMORRHAGE: No intracranial hemorrhage. BRAIN: Singleton-white matter differentiation is preserved. There is no mass, mass effect or abnormal extra-axial fluid collection. VENTRICLES: The ventricles are normal in size, shape and configuration. CALVARIUM: There is no calvarial fracture or extracranial soft tissue swelling. PARANASAL SINUSES: Predominantly clear. MASTOID AIR CELLS: Predominantly clear. OTHER FINDINGS: None. IMPRESSION: No acute intracranial abnormality. Time: 15:30 --Alcohol level at 337 mg/dl --Patient admitted to ED-OBS, pending clinical sobriety Scribe Attestation: Documented by Suki Vaughn, acting as a scribe for Betty John MD Provider Scribe Attestation: All medical record entries made by the Scribe were at my direction and personally dictated by me. I have reviewed the chart and agree that the record accurately reflects my personal performance of the history, physical exam, medical decision making, and the department course for this patient. I have also personally directed, reviewed, and agree with the discharge instructions and disposition. ED OBSERVATION Date of observation admission: 04/07/17 Time of observation admission: 15:30 - Observation admission statement Patient is being placed in observation because:: ETOH intoxication - Goals of Observation Goals of observation are:: Clinical sobriety - Progress Note Progress Note: 04/07/17 Time: 15:30 --Patient is resting comfortably. Vital signs stable. Time: 17:00 --Patient is resting comfortably. Vital signs stable. --Patient is signed out by me to Dr. Martha Dunn MD, pending sobriety. Disposition - Clinical Impression Clinical Impression: Alcohol intoxication - Patient ED Disposition Is Patient to be Admitted: Transfer of Care - Disposition Disposition Time: 19:00 Condition: STABLE Patient Signed Over To: Martha Dunn (Pending sobriety)
--- NOTE | 2017-04-07 19:01 | ED PDOC ---
- Laboratory Results Result Diagrams: 04/07/17 14:47 04/07/17 14:47 - ECG O2 Sat by Pulse Oximetry: 99 (RA) - Progress ED Course And Treament: Assumed care from Dr Dr John. Pending clinical sobriety. Disposition - Clinical Impression Clinical Impression: Alcohol intoxication - POA Present On Arrival: Falls Or Trauma - Disposition Disposition: Transfer of Care Disposition Time: 15:30 Condition: STABLE Patient Signed Over To: Keron Pepe
[2017-04-07 19:14] LABS: RBC URINE 1 /hpf (0-3); URINE BILIRUBIN NEGATIVE (NEGATIVE); URINE BLOOD NEGATIVE (NEGATIVE); URINE COLOR STRAW (YELLOW); URINE GLUCOSE (UA) NEG (Normal); URINE KETONE NEGATIVE (NEGATIVE); URINE LEUKOCYTE ESTERASE NEG Leu/uL (Negative); URINE PROTEIN NEGATIVE (NEGATIVE); URINE UROBILINOGEN 0.2-1.0 mg/dL (0.2-1.0); WBC URINE 1 /hpf (0-5)
--- NOTE | 2017-04-07 19:44 | ED PDOC ---
- Laboratory Results Result Diagrams: 04/07/17 14:47 04/07/17 14:47 - ECG O2 Sat by Pulse Oximetry: 99 (RA) Pulse Ox Interpretation: Normal Medical Decision Making Medical Decision Making: Time: 19:00 --Patient is signed out to me by Dr. Martha Dunn MD, pending sobriety. Time: 19:35 --Patient is awake, alert, and oriented x3, has steady gait and fluent speech. Requesting to be discharged home. Patient is medically stable and will be discharged home. Clinical Impression: Alcohol intoxication Disposition Counseled Patient/Family Regarding: Studies Performed, Diagnosis, Need For Followup - Clinical Impression Clinical Impression: Alcohol intoxication - POA Present On Arrival: None - Disposition Disposition: Routine/Home Disposition Time: 15:30 Condition: STABLE
== END 2017-04-07 19:56 | disposition home or self-care (01) ==
LOC: H.ER 13:44 → H.EROBSV 15:30
PROVIDERS: ADMIT Emergency Medicine; ATTEND Emergency Medicine
DX: F10.129 Alcohol abuse with intoxication, unspecified (principal); G40.909 Epilepsy, unspecified, not intractable, without status epilepticus; E78.00 Pure hypercholesterolemia, unspecified; E78.5 Hyperlipidemia, unspecified; F25.9 Schizoaffective disorder, unspecified; F31.9 Bipolar disorder, unspecified; F43.10 Post-traumatic stress disorder, unspecified; G47.30 Sleep apnea, unspecified; I10 Essential (primary) hypertension; F32.9 Major depressive disorder, single episode, unspecified; F41.9 Anxiety disorder, unspecified; Y90.8 Blood alcohol level of 240 mg/100 ml or more
CPT/HCPCS: 70450; 80053; 80299; 80320; 80324; 80345; 80346; 80349; 80353; 80358; 80361; 81003; 82948; 83992; 85025; 99285; G0378

== ENCOUNTER 2017-04-10 01:00 | Emergency (ER) | payer MEDICAID ==
[2017-04-10 01:01] VITALS: BMI 37.5
[2017-04-10 01:18] VITALS: BP 160/90; PULSE 90; RESP 16; TEMP 98.1; O2SAT 96
--- NOTE | 2017-04-10 01:55 | ED PDOC ---
HPI: General Adult Time Seen by Provider: 04/10/17 01:11 Chief Complaint (Nursing): GI Problem Chief Complaint (Provider): GI Problem History Per: Patient History/Exam Limitations: no limitations Current Symptoms Are (Timing): Still Present Additional Complaint(s): 32 year old male presents to ED with complaints of a bright red bowel movement x1 episode and has a past medical history of HTN. Patient states that he was at [facility] earlier today attempting to detox but notes that there were no beds available. Patient reports having a bright red bowel movement upon returning home. (-) abdominal pain, nausea, or vomiting. PCP: Jennifer Acosta Past Medical History Reviewed: Historical Data, Nursing Documentation, Vital Signs Vital Signs: Last Vital Signs Temp 98.1 F 04/10/17 01:13 Pulse 90 04/10/17 01:13 Resp 16 04/10/17 01:13 BP 160/90 H 04/10/17 01:13 Pulse Ox 96 04/10/17 02:04 - Medical History PMH: Anxiety, Bipolar Disorder, Depression, Gall Bladder Disease (thickening of the wall of gb), HTN, Hypercholesterolemia, Hyperlipidemia, Paranoia, Post Traumatic Stress Disorder, Schizophrenia (schizoaffective), Seizures (t), Sleep Apnea Denies: HIV, Chronic Kidney Disease, Sexually Transmitted Disease - Surgical History Surgical History: - Family History Family History: States: Unknown Family Hx - Social History Current smoker - smoking cessation education provided: No Ex-Smoker (has not smoked in the last 12 months): No Alcohol: Other (Daily) Drugs: Denies - Immunization History Hx Tetanus Toxoid Vaccination: Yes Hx Influenza Vaccination: Yes Hx Pneumococcal Vaccination: No - Home Medications Home Medications: Ambulatory Orders Medication Instructions Recorded Doxepin [Sinequan] 10 mg PO HS #15 cap 02/13/17 Prazosin HCl [Minipress] 2 mg PO HS #30 cap 02/13/17 Quetiapine Fumarate [Seroquel] 500 mg PO HS 02/23/17 Gabapentin [Neurontin] 800 mg PO HS #14 cap 02/27/17 levETIRAcetam [Keppra] 1,500 mg PO AMHS #30 tab 02/27/17 Gabapentin [Neurontin] 600 mg PO BID 04/09/17 Omeprazole 20 mg PO DAILY #30 german. 04/10/17 - Allergies Allergies/Adverse Reactions: Allergies Allergy/AdvReac Type Severity Reaction Status Date / Time FISH Allergy RASH Verified 04/09/17 07:06 hydroxyzine [From Vistaril] Allergy RASH Verified 04/09/17 07:06 Review of Systems ROS Statement: Except As Marked, All Systems Reviewed And Found Negative Gastrointestinal: Positive for: Hematochezia. Negative for: Nausea, Vomiting, Abdominal Pain Physical Exam - Reviewed Nursing Documentation Reviewed: Yes Vital Signs Reviewed: Yes - Physical Exam Appears: Positive for: Non-toxic, No Acute Distress (unkempt, obese) Skin: Positive for: Normal Color, Warm, Dry Cardiovascular/Chest: Positive for: Regular Rate, Rhythm. Negative for: Murmur Respiratory: Positive for: Normal Breath Sounds. Negative for: Respiratory Distress Gastrointestinal/Abdominal: Positive for: Normal Exam, Soft. Negative for: Tenderness Rectal: Positive for: Rectal Tone Is: (brown), Other ([employer]: SAHIL Maki). Negative for: Deferred, Black Stool, Blood Streaked Stool Extremity: Positive for: Normal ROM. Negative for: Deformity Neurologic/Psych: Positive for: Alert, Oriented. Negative for: Motor/Sensory Deficits - Laboratory Results Result Diagrams: 04/10/17 01:59 - ECG O2 Sat by Pulse Oximetry: 96 (RA) Pulse Ox Interpretation: Normal Medical Decision Making Medical Decision Makin Initial impression: lower GI bleed, bed seeking behavior Initial plan: * Labs * Occult blood 200 CBC normal, will d/c home, told to f/u w/ PMD. PPI prescribed. Return precautions given. Scribe Attestation: Documented by Maru Willson acting as a scribe for Asher Caal MD. Scribe Attestation: All medical record entries made by the Scribe were at my direction and personally dictated by me. I have reviewed the chart and agree that the record accurately reflects my personal performance of the history, physical exam, medical decision making, and the department course for this patient. I have also personally directed, reviewed, and agree with the discharge instructions and disposition. Disposition - Clinical Impression Clinical Impression: Rectal bleed - Disposition Referrals: Jennifer Acosta MD [Staff Provider] - Disposition: Routine/Home Disposition Time: 02:00 Condition: IMPROVED Prescriptions: Omeprazole 20 mg PO DAILY #30 capsule. Instructions: Omeprazole (By mouth), Rectal Bleeding (ED) Forms: [facility] (Danish)
[2017-04-10 02:01] LABS: HEMATOCRIT 44.6 % (35.0-51.0); MEAN CELL VOLUME 89.3 fl (80.0-94.0); MEAN CORPUSCULAR HEMOGLOBIN 30.3 pg (27.0-31.0); RED CELL DISTRIBUTION WIDTH 14.5 % (11.5-14.5); WHITE BLOOD COUNT 5.6 K/uL (4.8-10.8)
== END 2017-04-10 02:45 | disposition home or self-care (01) ==
LOC: H.ER 01:00
DX: K62.5 Hemorrhage of anus and rectum (principal); E78.5 Hyperlipidemia, unspecified; F31.9 Bipolar disorder, unspecified; F43.10 Post-traumatic stress disorder, unspecified; I10 Essential (primary) hypertension
CPT/HCPCS: 85027; 99282; G0328

== ENCOUNTER 2017-04-27 00:23 | Emergency (ER) | payer MEDICAID ==
[2017-04-27 00:23] VITALS: BMI 37.5
--- NOTE | 2017-04-27 00:55 | ED PDOC ---
HPI: Trauma/Fall - HPI Time Seen by Provider: 04/27/17 00:37 Chief Complaint (Nursing): Trauma Chief Complaint (Provider): Ankle Injury History Per: Patient History/Exam Limitations: no limitations Onset/Duration Of Symptoms: Mins ([employer] ENG[employer]) Injury Occurred (Timing): Just Before Arrival Location Of Injury: Right: Ankle, Left: Hand, Posterior: Head Additional Complaint(s): 32 year old male brought in by EMS presents to ED with complaints of right ankle pain status post fall [employer]ER and has a past psychiatric history as well as a history of alcohol abuse. Patient confirms he was drinking when he attempted to step over a curb and slipped, causing him to roll his right ankle. States that he fell, injuring his head and his left hand. Notes that he was unable to put any pressure on his right leg. PCP: None - Fall Fall:Prior To Injury: Slipped Past Medical History Reviewed: Historical Data, Nursing Documentation, Vital Signs Vital Signs: Last Vital Signs Temp 98.6 F 04/27/17 00:37 Pulse 74 04/27/17 00:37 Resp 20 04/27/17 00:37 BP 108/51 L 04/27/17 00:37 Pulse Ox 99 04/27/17 03:20 - Medical History PMH: Anxiety, Bipolar Disorder, Depression, Gall Bladder Disease (thickening of the wall of gb), HTN, Hypercholesterolemia, Hyperlipidemia, Paranoia, Post Traumatic Stress Disorder, Schizophrenia (schizoaffective), Seizures, Sleep Apnea, TIA Denies: HIV, Chronic Kidney Disease, Sexually Transmitted Disease - Surgical History Surgical History: - Family History Family History: States: Unknown Family Hx - Social History Alcohol: > 2 Drinks/Day - Immunization History Hx Tetanus Toxoid Vaccination: Yes Hx Influenza Vaccination: Yes Hx Pneumococcal Vaccination: No - Home Medications Home Medications: Ambulatory Orders Medication Instructions Recorded Doxepin [Sinequan] 10 mg PO HS #15 cap 02/13/17 Prazosin HCl [Minipress] 2 mg PO HS #30 cap 02/13/17 Quetiapine Fumarate [Seroquel] 500 mg PO HS 02/23/17 Gabapentin [Neurontin] 800 mg PO HS #14 cap 02/27/17 levETIRAcetam [Keppra] 1,500 mg PO AMHS #30 tab 02/27/17 Gabapentin [Neurontin] 600 mg PO BID 04/09/17 Levetiracetam [Keppra] 2 tab PO BID #10 tablet 04/10/17 Omeprazole 20 mg PO DAILY #30 capsule. 04/10/17 Gabapentin [Neurontin] 600 mg PO TID #90 tab 04/24/17 Mirtazapine [Remeron] 30 mg PO HS #30 tab 04/24/17 Prazosin HCL [Minipress] 2 mg PO HS #30 cap 04/24/17 QUEtiapine [Seroquel] 200 mg PO HS #30 tab 04/24/17 levETIRAcetam [Keppra] 500 mg PO BID #60 tab 04/24/17 Ibuprofen [Motrin Tab] 600 mg PO Q6 #30 tab 04/27/17 - Allergies Allergies/Adverse Reactions: Allergies Allergy/AdvReac Type Severity Reaction Status Date / Time FISH Allergy ITCHING Verified 04/27/17 00:37 hydroxyzine [From Vistaril] Allergy agitation Verified 04/27/17 00:37 Review of Systems ROS Statement: Except As Marked, All Systems Reviewed And Found Negative Musculoskeletal: Positive for: Hand Pain ((+) left hand pain), Foot Pain ((+) right ankle pain), Other (Head pain) Physical Exam - Reviewed Nursing Documentation Reviewed: Yes Vital Signs Reviewed: Yes - Physical Exam Appears: Positive for: Non-toxic, No Acute Distress (appears mildly intoxicated) Head Exam: Positive for: ATRAUMATIC, NORMOCEPHALIC Skin: Positive for: Normal Color, Warm, Dry Eye Exam: Positive for: Normal appearance, EOMI, PERRL ENT: Positive for: Normal ENT Inspection Neck: Positive for: Normal, Painless ROM, Supple Cardiovascular/Chest: Positive for: Regular Rate, Rhythm. Negative for: Murmur Respiratory: Positive for: Normal Breath Sounds. Negative for: Respiratory Distress Gastrointestinal/Abdominal: Positive for: Normal Exam, Soft. Negative for: Tenderness Back: Positive for: Normal Inspection Extremity: Positive for: Normal ROM, Tenderness (TTP to right medial malleolus) , Swelling (swelling to right ankle), Other ((+) abrasion to left hand). Negative for: Deformity Neurologic/Psych: Positive for: Alert, court monitor II-XII (intact), Oriented, Cerebellar Tests (intact). Negative for: Motor/Sensory Deficits - ECG O2 Sat by Pulse Oximetry: 99 (RA) Pulse Ox Interpretation: Normal Medical Decision Making Medical Decision Makin Initial impression: ankle sprain Initial plan: * CT HEAD * Acetaminophen 650mg PO * XR ANKLE RIGHT * Re-eval 0126 CT FINDINGS: Brain: Ventricles are normal in size and configuration. There is no midline shift. There are no intraaxial or extra-axial mass lesions or areas of hemorrhage. There are no abnormal fluid collections. Singleton-white differentiation is maintained. Ventricles: See above. Bones: Cranial vault is intact. Soft tissues: unremarkable Sinuses: There is no acute sinusitis. Ears and mastoids: Middle ears and mastoids are unremarkable Orbits: Orbital contents are unremarkable. IMPRESSION: No acute intracranial abnormality 0142 XR FINDINGS Bones/joints: There is artifact from clothing. There is lateral soft tissue swelling. There is no effusion in the ankle joint. There is a small degenerative ossicle anterior superior to the distal talus, degenerative versus traumatic. No other area suspicious for fracture are visualized. Mineralization is normal. Joint spaces are maintained. Soft tissues: see above IMPRESSION: Soft tissue swelling, no ankle joint effusion; degenerative ossicle versus avulsion fracture adjacent to the talus, correlation with point tenderness advised * CT EXTREMITY LOWER Podiatry was called: will come to evaluate patient at bedside. 0305 CT FINDINGS BONES/JOINTS: Small, chronic appearing bony densities are seen posterior to the talus, and abutting the medial malleolus postero-medially. Mild osteoarthritic changes of the ankle joint. Small marginal osteophytes are seen. No evidence of acute dislocation. No acute fractures are seen. Ankle mortise is intact. Talus appear intact. SOFT TISSUES: Focal soft tissue swelling overlying the distal fibula. Mild, diffuse subcutaneous edema. Note that the extremity soft tissues, such as the tendons and ligaments, are suboptimally evaluated by CT compared with MRI. IMPRESSION: - No acute fractures identified. - Soft tissue edema. - See above for remaining findings. 0315 Instructions given by podiatry to follow up later today with clinic. Patient is medically stable for discharge home. Discharged with Rx for ibuprofen. Dx: ankle sprain Scribe Attestation: Documented by Maru Willson acting as a scribe for Asher Caal MD. Scribe Attestation: All medical record entries made by the Scribe were at my direction and personally dictated by me. I have reviewed the chart and agree that the record accurately reflects my personal performance of the history, physical exam, medical decision making, and the department course for this patient. I have also personally directed, reviewed, and agree with the discharge instructions and disposition. Disposition - Clinical Impression Clinical Impression: Ankle sprain - Disposition Referrals: Podiatry Clinic [Outside] Disposition: Routine/Home Disposition Time: 03:15 Condition: STABLE Prescriptions: Ibuprofen [Motrin Tab] 600 mg PO Q6 #30 tab Instructions: Ankle Sprain (ED), Crutch Instructions (ED), Head Injury (ED) Forms: [facility] (Stateless) - POA Present On Arrival: None
--- NOTE | 2017-04-27 01:26 | CT ---
EXAM: CT Head Without Intravenous Contrast EXAM DATE/TIME: 04/27/2017 12:45 AM CLINICAL HISTORY: 32 years old, male; Injury or trauma; Fall; Initial encounter; Concussion / head injury; Without loss of consciousness; Additional info: Head injury, intox TECHNIQUE: Axial computed tomography images of the head/brain without intravenous contrast. All CT scans at this facility use one or more dose reduction techniques, viz.: automated exposure control; ma/kV adjustment per patient size (including targeted exams where dose is matched to indication; i.e. head); or iterative reconstruction technique. Coronal and sagittal reformatted images were created and reviewed. COMPARISON: Prior images are not available for review. FINDINGS: Brain: Ventricles are normal in size and configuration. There is no midline shift. There are no intra-axial or extra-axial mass lesions or areas of hemorrhage. There are no abnormal fluid collections. Singleton-white differentiation is maintained. Ventricles: See above. Bones: Cranial vault is intact. Soft tissues: unremarkable Sinuses: There is no acute sinusitis. Ears and mastoids: Middle ears and mastoids are unremarkable Orbits: Orbital contents are unremarkable. IMPRESSION: No acute intracranial abnormality
--- NOTE | 2017-04-27 01:43 | RAD ---
EXAM: XR Right Ankle Complete, 3 or More Views EXAM DATE/TIME: 04/27/2017 12:45 AM CLINICAL HISTORY: 32 years old, male; Pain; Ankle; Right; Additional info: Ankle injury, "rolled ankle" TECHNIQUE: Frontal, lateral and oblique views of the right ankle. COMPARISON: There are no prior studies for comparison. FINDINGS: Bones/joints: There is artifact from clothing. There is lateral soft tissue swelling. There is no effusion in the ankle joint. There is a small degenerative ossicle anterior superior to the distal talus, degenerative versus traumatic. No other area suspicious for fracture are visualized. Mineralization is normal. Joint spaces are maintained. Soft tissues: see above IMPRESSION: Soft tissue swelling, no ankle joint effusion; degenerative ossicle versus avulsion fracture adjacent to the talus, correlation with point tenderness advised
--- NOTE | 2017-04-27 02:42 | CP.PCM.CON ---
History of Present Illness - History of Present Illness History of Present Illness: 32 year old male with PMHx including seizures presents to to ED for complaint of right ankle pain. Patient states that this evening while intoxicated he stepped off a curb wrong and twisted his ankle. He states the does not remember much after that other than being helped up by pedestrians. He admits that he was unable to bear weight to his right lower extremity. Patient also states that he has been walking with a cane for a while due to muscle atrophy he sustained after not getting out of bed for a while. He states that he binge drinks and today he had many beers. Admits that his right ankle is tender. Denies n/v/f/c/sob/cp. Past Patient History - Infectious Disease Hx of Infectious Diseases: None - Tetanus Immunizations Tetanus Immunization: Unknown - Past Medical History & Family History Past Medical History?: Yes - Past Social History Alcohol: > 2 Drinks/Day - CARDIAC Hx Hypercholesterolemia: Yes Hx Hypertension: Yes - PULMONARY Hx Sleep Apnea: Yes - NEUROLOGICAL Hx Seizures: Yes Hx Transient Ischemic Attacks (TIA): Yes - HEENT Hx HEENT Problems: No - RENAL Hx Chronic Kidney Disease: No - ENDOCRINE/METABOLIC Hx Endocrine Disorders: No - HEMATOLOGICAL/ONCOLOGICAL Hx Human Immunodeficiency Virus (HIV): No - INTEGUMENTARY Hx Dermatological Problems: No - MUSCULOSKELETAL/RHEUMATOLOGICAL Hx Musculoskeletal Disorders: Yes Hx Back Pain: Yes Hx Falls: Yes Other/Comment: chronic leg and foot pain - GASTROINTESTINAL Hx Gall Bladder Disease: Yes (thickening of the wall of gb) - GENITOURINARY/GYNECOLOGICAL Hx Sexually Transmitted Disorders: No - PSYCHIATRIC Hx Anxiety: Yes Hx Bipolar Disorder: Yes Hx Depression: Yes Hx Paranoia: Yes Hx Post Traumatic Stress Disorder: Yes Hx Schizophrenia: Yes (schizoaffective) - ANESTHESIA Hx Anesthesia: No Hx Anesthesia Reactions: No Meds Home Medications: Home Medication List Medication Instructions Recorded Confirmed Type Ibuprofen [Motrin Tab] 600 mg PO Q6 #30 tab 04/27/17 Rx Allergies/Adverse Reactions: Allergies Allergy/AdvReac Type Severity Reaction Status Date / Time FISH Allergy ITCHING Verified 04/27/17 00:37 hydroxyzine [From Vistaril] Allergy agitation Verified 04/27/17 00:37 Physical Exam - Constitutional Appears: No Acute Distress - Extremities Exam Additional comments: Right lower extremity focused exam: Vasc: DP and PT pulses palpable 2/4. CFT < 3 seconds to all digits. Skin temperature warm to warm from proximal to distal. Neuro:Gross sensation intact Ortho: Pain on palpation to the ATFL, PTFL, CFL. Muscle strength deferred due to pain. Derm: Non-pitting edema noted to the right ankle. No open lesions noted. - Neurological Exam Neurological exam: Alert - Psychiatric Exam Psychiatric exam: Normal Affect, Normal Mood Results - Vital Signs Recent Vital Signs: Last Vital Signs Temp 98.6 F 04/27/17 00:37 Pulse 74 04/27/17 00:37 Resp 20 04/27/17 00:37 BP 108/51 L 04/27/17 00:37 Pulse Ox 99 04/27/17 02:00 Assessment & Plan - Assessment and Plan (Free Text) Assessment: 32 year old male with right ankle sprain Plan: patient examined and evaluated discussed in detail with attending, Dr. Mo radiographs reviewed: IMPRESSION: Soft tissue swelling, no ankle joint effusion ; degenerative ossicle versus avulsion fracture adjacent to the talus, correlation with point tenderness advised ct reviewed:no acute fractures noted, soft tissue edema right ankle dressed with modified aguero compressive dressing and patient given surgical shoe and crutches patient instructed to remain non-WB to RLE patient to keep dressing clean, dry, intact until f/u patient to follow up with podiatry clinic
--- NOTE | 2017-04-27 03:05 | CT ---
EXAM: CT Right Lower Extremity Without Intravenous Contrast, Ankle EXAM DATE/TIME: 04/27/2017 1:53 AM CLINICAL HISTORY: 32 years old, male; Pain; Ankle and other: Talus; Right; Additional info: Questionable talus FX on xray TECHNIQUE: Axial computed tomography images of the right ankle without intravenous contrast. All CT scans at this facility use one or more dose reduction techniques, viz.: automated exposure control; ma/kV adjustment per patient size (including targeted exams where dose is matched to indication; i.e. head); or iterative reconstruction technique. Coronal and sagittal reformatted images were created and reviewed. COMPARISON: Recent right ankle radiographs of 04/27/2017 1:09 AM FINDINGS: BONES/JOINTS: Small, chronic appearing bony densities are seen posterior to the talus, and abutting the medial malleolus postero-medially. Mild osteoarthritic changes of the ankle joint. Small marginal osteophytes are seen. No evidence of acute dislocation. No acute fractures are seen. Ankle mortise is intact. Talus appear intact. SOFT TISSUES: Focal soft tissue swelling overlying the distal fibula. Mild, diffuse subcutaneous edema. Note that the extremity soft tissues, such as the tendons and ligaments, are suboptimally evaluated by CT compared with MRI. IMPRESSION: - No acute fractures identified. - Soft tissue edema. - See above for remaining findings.
[2017-04-27 05:40] VITALS: BP 127/72; PULSE 100; RESP 17; TEMP 97.6; O2SAT 100
== END 2017-04-27 05:49 | disposition home or self-care (01) ==
LOC: H.ER 00:23
DX: S93.401A Sprain of unspecified ligament of right ankle, initial encounter (principal); S09.90XA Unspecified injury of head, initial encounter; W01.0XXA Fall on same level from slipping, tripping and stumbling without subsequent striking against object, initial encounter; Y92.89 Other specified places as the place of occurrence of the external cause; E78.5 Hyperlipidemia, unspecified; F31.9 Bipolar disorder, unspecified; F43.10 Post-traumatic stress disorder, unspecified; I10 Essential (primary) hypertension; Z86.73 Personal history of transient ischemic attack (TIA), and cerebral infarction without residual deficits

== ENCOUNTER 2017-04-28 09:15 | Observation (INO) | payer MEDICAID ==
[2017-04-28 09:22] VITALS: BMI 36.2
--- NOTE | 2017-04-28 09:55 | ED PDOC ---
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 Patient is well known in the ED for acute alcohol intoxications. Admits to drinking alcohol. No tongue biting. No other somatic complaints. Patient is compliant with Keppra medication. Past Medical History Reviewed: Historical Data, Nursing Documentation, Vital Signs Vital Signs: Last Vital Signs Temp 97 F L 04/28/17 09:20 Pulse 74 04/28/17 10:16 Resp 16 04/28/17 10:16 BP 145/96 H 04/28/17 09:20 Pulse Ox 98 04/28/17 10:32 - Medical History PMH: Anxiety, Bipolar Disorder, Depression, Gall Bladder Disease (thickening of the wall of gb), HTN, Hypercholesterolemia, Hyperlipidemia, Paranoia, Post Traumatic Stress Disorder, Schizophrenia (schizoaffective), Seizures, Sleep Apnea, TIA Denies: HIV, Chronic Kidney Disease, Sexually Transmitted Disease - Surgical History Surgical History: - Family History Family History: States: Unknown Family Hx - Immunization History Hx Tetanus Toxoid Vaccination: Yes Hx Influenza Vaccination: Yes Hx Pneumococcal Vaccination: No - Home Medications Home Medications: Ambulatory Orders Medication Instructions Recorded levETIRAcetam [Keppra] 1,500 mg PO AMHS #30 tab 02/27/17 Gabapentin [Neurontin] 600 mg PO TID #90 tab 04/24/17 Mirtazapine [Remeron] 30 mg PO HS #30 tab 04/24/17 Prazosin HCL [Minipress] 2 mg PO HS #30 cap 04/24/17 QUEtiapine [Seroquel] 200 mg PO HS #30 tab 04/24/17 - Allergies Allergies/Adverse Reactions: Allergies Allergy/AdvReac Type Severity Reaction Status Date / Time FISH Allergy ITCHING Verified 04/28/17 09:20 hydroxyzine [From Vistaril] Allergy agitation Verified 04/28/17 09:20 Review of Systems ROS Statement: Except As Marked, All Systems Reviewed And Found Negative Constitutional: Positive for: Other (Acute alcohol intoxication) ENT: Negative for: Other (NO tongue biting) Neurological: Positive for: Seizures (Possible) Physical Exam - Reviewed Nursing Documentation Reviewed: Yes Vital Signs Reviewed: Yes - Physical Exam Appears: Positive for: Well (Acute alcohol intoxication. (+) AOB.), Non-toxic, No Acute Distress Head Exam: Positive for: ATRAUMATIC, NORMAL INSPECTION, NORMOCEPHALIC Skin: Positive for: Normal Color, Warm, DRY Eye Exam: Positive for: EOMI, Normal appearance, PERRL ENT: Positive for: Normal ENT Inspection Neck: Positive for: Normal, Supple Cardiovascular/Chest: Positive for: Regular Rate, Rhythm Respiratory: Positive for: Normal Breath Sounds. Negative for: Rales, Rhonchi, Wheezing Gastrointestinal/Abdominal: Positive for: Soft. Negative for: Tenderness Back: Positive for: Normal Inspection. Negative for: L CVA Tenderness, R CVA Tenderness Neurologic/Psych: Positive for: Alert, Oriented (x3). 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 Seizure disorder Scribe Attestation Documented by Jacinda hamm acting as a scribe for Betty John MD. Provider Attestation: All medical record entries made by the Scribe were at my direction and personally dictated by me. I have reviewed the chart and agree that the record accurately reflects my personal performance of the history, physical exam, medical decision making, and the department course for this patient. I have also personally directed, reviewed, and agree with the discharge instructions and disposition. ED OBSERVATION Date of observation admission: 04/28/17 Time of observation admission: 10:32 - Observation admission statement Patient is being placed in observation because:: acute alcohol intoxication - Goals of Observation Goals of observation are:: Sobriety Disposition - Disposition Forms: [employer] (Greek)
[2017-04-28 10:06] LABS: HEMATOCRIT 49.9 % (35.0-51.0); MEAN CORPUSCULAR HEMOGLOBIN 30.2 pg (27.0-31.0); MEAN CORPUSCULAR HGB CONC 33.6 g/dL (33.0-37.0); MEAN PLATELET VOLUME 7.1 fl (7.2-11.7); NEUT % 47.9 % (50.0-75.0); RED CELL DISTRIBUTION WIDTH 14.5 % (11.5-14.5); WHITE BLOOD COUNT 4.4 K/uL (4.8-10.8)
[2017-04-28 10:07] LABS: BASO # 0.1 K/uL (0.0-0.2); BASO % 1.3 % (0.0-2.0); EOS % 1.1 % (0.0-4.0); LYMPH # 1.7 K/uL (1.0-4.3); MONO # 0.5 K/uL (0.0-0.8); MONO % 11.7 % (0.0-10.0); NEUT # 2.1 K/uL (1.8-7.0); NRBC % 0.6 % (0.0-0.0)
[2017-04-28 10:15] LABS: ALB/GLOB RATIO 1.3 (1.0-2.1); ALKALINE PHOSPHATASE 76 U/L (38-126); ALT/SGPT 183 U/L (21-72); AST/SGOT 104 U/L (17-59); BILIRUBIN,TOTAL 0.7 mg/dl (0.2-1.3); BLOOD UREA NITROGEN 15 mg/dl (9-20); CARBON DIOXIDE 32 mmol/L (22-30); CHLORIDE 101 mmol/L (98-107); GFR AFRICAN-AMERICAN > 60; GLUCOSE,RANDOM 102 mg/dL (75-110); POTASSIUM 4.2 MMOL/L (3.6-5.0); SODIUM 149 mmol/l (132-148); TOTAL PROTEIN 8.3 G/DL (6.3-8.2)
[2017-04-28 10:26] LABS: ALCOHOL SERUM 319 mg/dl (0-10)
[2017-04-28 16:20] VITALS: TEMP 98.5; O2SAT 100
[2017-04-28 16:32] VITALS: BP 134/84; PULSE 73; RESP 16
== END 2017-04-28 16:30 | disposition home or self-care (01) ==
LOC: H.ER 09:15 → H.EROBSV 10:29
PROVIDERS: ADMIT Emergency Medicine; ATTEND Emergency Medicine
DX: F10.129 Alcohol abuse with intoxication, unspecified (principal); G40.909 Epilepsy, unspecified, not intractable, without status epilepticus; I10 Essential (primary) hypertension; E78.00 Pure hypercholesterolemia, unspecified; G47.30 Sleep apnea, unspecified; F31.9 Bipolar disorder, unspecified; F25.9 Schizoaffective disorder, unspecified; F41.9 Anxiety disorder, unspecified; F32.9 Major depressive disorder, single episode, unspecified; F43.10 Post-traumatic stress disorder, unspecified; K82.9 Disease of gallbladder, unspecified; Z86.73 Personal history of transient ischemic attack (TIA), and cerebral infarction without residual deficits
CPT/HCPCS: 80053; 80299; 80320; 82948; 85025; 99285; G0378

== ENCOUNTER 2018-02-04 05:45 | Emergency (ER) | payer MEDICAID ==
[2018-02-04 05:45] VITALS: BMI 36.2
[2018-02-04 06:45] LABS: BASO # 0.1 K/uL (0.0-0.2); BASO % 0.8 % (0.0-2.0); EOS # 0.1 K/uL (0.0-0.7); EOS % 1.2 % (0.0-4.0); LYMPH # 0.9 K/uL (1.0-4.3); LYMPH % 14.7 % (20.0-40.0); MEAN CELL VOLUME 85.9 fl (80.0-94.0); MEAN PLATELET VOLUME 7.1 fl (7.2-11.7); MONO # 1.1 K/uL (0.0-0.8); MONO % 17.6 % (0.0-10.0); NEUT % 65.7 % (50.0-75.0); NRBC % 0.1 % (0.0-0.0); RBC 5.65 Mil/uL (4.40-5.90); WHITE BLOOD COUNT 6.2 K/uL (4.8-10.8)
[2018-02-04 06:49] LABS: SQUAMOUS EPITHIAL < 1 /hpf (0-5); URINE BILIRUBIN NEGATIVE (NEGATIVE); URINE BLOOD NEGATIVE (NEGATIVE); URINE CLARITY CLEAR (Clear); URINE COLOR STRAW (YELLOW); URINE GLUCOSE (UA) NEG (Normal); URINE LEUKOCYTE ESTERASE NEG Leu/uL (Negative); URINE PROTEIN NEGATIVE (NEGATIVE); URINE UROBILINOGEN 0.2-1.0 mg/dL (0.2-1.0)
[2018-02-04 06:55] LABS: BLOOD UREA NITROGEN 5 mg/dl (9-20); CALCIUM 9.8 mg/dL (8.4-10.2); GFR AFRICAN-AMERICAN > 60; GFR NON-AFRICAN AMERICAN > 60
[2018-02-04 06:56] LABS: ACETAMINOPHEN < 10.0 ug/ml (10.0-30.0); SALICYLATE < 1.0 mg/dl
--- NOTE | 2018-02-04 06:56 | ED PDOC ---
HPI: Psych/Substance Abuse Time Seen by Provider: 02/04/18 06:08 Chief Complaint (Nursing): Psychiatric Evaluation Chief Complaint (Provider): Psychiatric Evaluation History Per: Patient History/Exam Limitations: no limitations Onset/Duration Of Symptoms: Days Current Symptoms Are (Timing): Still Present Associated Symptoms: Anxiety, Paranoia. denies: Suicidal Thoughts Additional Complaint(s): Anatoliy Gleason is a 32 year old male with a past medical history of hypertension, anxiety, and schizo-affective disorder who is presenting to the ED for evaluation of vomiting, feeling anxious, sweating, and possible visual hallucinations, onset several days ago but patient unable to pinpoint exact time frame. Patient states that he can not tolerate solids PO which has resulted in non-compliance with his anxiety medications. He reports that he has not been sleeping much with associated paranoia and was discharged from [facility] in December. Since then, he states he has had intermittent episodes of vomiting. Patient denies any suicidal or homicidal ideations. PMD: Jennifer Acosta Past Medical History Reviewed: Historical Data, Nursing Documentation, Vital Signs Vital Signs: Last Vital Signs Temp 98.0 F 02/04/18 05:56 Pulse 87 02/04/18 05:56 Resp 20 02/04/18 05:56 BP 151/99 H 02/04/18 05:56 Pulse Ox 99 02/04/18 05:56 - Medical History PMH: Anxiety, Bipolar Disorder, Depression, Gall Bladder Disease (thickening of the wall of gb), HTN, Hypercholesterolemia, Hyperlipidemia, Paranoia, Post Traumatic Stress Disorder, Schizophrenia (schizoaffective), Seizures, Sleep Apnea, TIA Denies: HIV, Chronic Kidney Disease, Sexually Transmitted Disease - Surgical History Surgical History: No Surg Hx - Family History Family History: States: Unknown Family Hx - Social History Alcohol: Other (intermittent binges) - Immunization History Hx Tetanus Toxoid Vaccination: Yes Hx Influenza Vaccination: Yes Hx Pneumococcal Vaccination: No - Home Medications Home Medications: Ambulatory Orders Medication Instructions Recorded levETIRAcetam [Keppra] 1,500 mg PO AMHS #30 tab 02/27/17 Gabapentin [Neurontin] 600 mg PO TID #90 tab 04/24/17 Prazosin HCL [Minipress] 2 mg PO HS #30 cap 04/24/17 Ibuprofen [Motrin] 600 mg PO Q6 PRN #30 tab 04/29/17 Mirtazapine [Remeron] 200 mg PO HS 04/29/17 QUEtiapine [Seroquel] 500 mg PO HS 04/29/17 - Allergies Allergies/Adverse Reactions: Allergies Allergy/AdvReac Type Severity Reaction Status Date / Time FISH Allergy ITCHING Verified 04/29/17 07:47 hydroxyzine [From Vistaril] Allergy agitation Verified 04/29/17 07:47 Review of Systems ROS Statement: Except As Marked, All Systems Reviewed And Found Negative Constitutional: Positive for: Sweats Gastrointestinal: Positive for: Vomiting Psych: Positive for: Anxiety. Negative for: Suicidal ideation, Other ( homicidal ideation) Physical Exam - Reviewed Nursing Documentation Reviewed: Yes Vital Signs Reviewed: Yes - Physical Exam Appears: Positive for: Non-toxic, Uncomfortable (tremulous, anxious appearing, morbidly obese) Head Exam: Positive for: ATRAUMATIC, NORMAL INSPECTION, NORMOCEPHALIC Skin: Positive for: Normal Color, Warm, DRY Eye Exam: Positive for: EOMI, Normal appearance, PERRL ENT: Positive for: Normal ENT Inspection Neck: Positive for: Normal, Painless ROM Cardiovascular/Chest: Positive for: Regular Rate, Rhythm Respiratory: Positive for: CNT, Normal Breath Sounds Gastrointestinal/Abdominal: Positive for: Normal Exam, Soft Back: Positive for: Normal Inspection Extremity: Positive for: Normal ROM. Negative for: Deformity Neurologic/Psych: Positive for: Alert, Oriented. Negative for: Motor/Sensory Deficits - Laboratory Results Result Diagrams: 02/04/18 06:42 02/04/18 06:42 - ECG O2 Sat by Pulse Oximetry: 99 (RA) Pulse Ox Interpretation: Normal Medical Decision Making Medical Decision Making: Time: 6:50 Male with past medical history of anxiety, and schizo-affective disorder here with vomiting and anxiousness Symptoms consistent with non-compliance of medications. Will administer Zofran and then PO challenge. After PO challenge successful, patient will be given anxiety medications. Crisis evaluation to follow. Patient will be signed out to Dr. Dunn at 7:00. Scribe Attestation: Documented by, Enedelia Degroot acting as a scribe for Asher Caal MD. Provider Scribe Attestation: All medical record entries made by the Scribe were at my direction and personally dictated by me. I have reviewed the chart and agree that the record accurately reflects my personal performance of the history, physical exam, medical decision making, and the department course for this patient. I have also personally directed, reviewed, and agree with the discharge instructions and disposition. Disposition - Clinical Impression Clinical Impression: Schizoaffective disorder, Hypertension - Patient ED Disposition Is Patient to be Admitted: Transfer of Care - Disposition Referrals: [facility] [Outside] Disposition: Transfer of Care Disposition Time: 07:00 Condition: GOOD Additional Instructions: Follow up with your PCP in 2-3 days. Instructions: High Blood Pressure (DC), Schizoaffective Disorder Patient Signed Over To: Martha Dunn Handoff Comments: pending labs and crisis eval
--- NOTE | 2018-02-04 07:24 | ED PDOC ---
- Laboratory Results Result Diagrams: 02/04/18 06:42 02/04/18 06:42 - ECG O2 Sat by Pulse Oximetry: 99 (RA) Pulse Ox Interpretation: Normal Medical Decision Making Medical Decision Making: Time: 7:00 --Patient signed over to this provider by Dr. Caal, pending labs and crisis evaluation. 1300 Patient is asymptomatic. Follow up with his PCP for high blood pressure. Scribe Attestation: Documented by Ashly Saleem, acting as a scribe for Martha Dunn MD Provider Scribe Attestation: All medical record entries made by the Scribe were at my direction and personally dictated by me. I have reviewed the chart and agree that the record accurately reflects my personal performance of the history, physical exam, medical decision making, and the department course for this patient. I have also personally directed, reviewed, and agree with the discharge instructions and disposition Disposition Counseled Patient/Family Regarding: Studies Performed, Diagnosis, Need For Followup - Clinical Impression Clinical Impression: Schizoaffective disorder, Hypertension - POA Present On Arrival: None - Disposition Referrals: [facility] [Outside] Disposition: Routine/Home Disposition Time: 13:23 Condition: GOOD Additional Instructions: Follow up with your PCP in 2-3 days. Instructions: High Blood Pressure (DC), Schizoaffective Disorder
[2018-02-04 07:56] LABS: BARBITURATES, UR NEGATIVE (NEGATIVE); BENZODIAZEPINES, UR NEGATIVE (NEGATIVE); OPIATES, UR NEGATIVE (NEGATIVE); PHENCYCLIDINE, UR NEGATIVE (NEGATIVE)
[2018-02-04 10:36] VITALS: TEMP 98.5
[2018-02-04 13:42] VITALS: BP 141/87; PULSE 86; RESP 16
[2018-02-04 19:25] VITALS: O2SAT 99
== END 2018-02-04 13:45 | disposition home or self-care (01) ==
LOC: H.ER 05:45
DX: F25.9 Schizoaffective disorder, unspecified (principal); I10 Essential (primary) hypertension; E78.00 Pure hypercholesterolemia, unspecified; F31.9 Bipolar disorder, unspecified; F43.10 Post-traumatic stress disorder, unspecified; Z86.73 Personal history of transient ischemic attack (TIA), and cerebral infarction without residual deficits